=== PATIENT | female | born 1985 | race Caucasian/White ===

== ENCOUNTER 2023-09-17 09:30 | Outpatient (AMB) | payer BC, SELFPAY ==
--- NOTE | 2023-09-17 09:34 | A.OFFVIS_ITS ---
Vital Signs 09/17/23 09:36 Height 5 ft 8 in Weight 184 lb BMI 28.0 BP 108/66 Intake Visit Reasons: New patient Annual Intake Note: spotting before her period and stabbing pains pulsating Certified Welder Required: No Information Interpreted: non-clinical & clinical Forest Officer: Forest Officer Present (Aidyn) Allergies cinnamon [CINNAMON] Allergy (Intermediate, Verified 09/17/23 09:38) HIVES [place] And Derivatives [CITRUS] Allergy (Intermediate, Verified 09/17/23 09:38) HIVES pineapple [PINEAPPLE] Allergy (Unknown, Verified 09/17/23 09:38) SWELLING OxyContin Allergy (Unknown, Uncoded 09/17/23 09:38) Unknown Seasonal IC Allergy (Unknown, Uncoded 09/17/23 09:38) Itchy Eyes Is last menstrual period known: Yes Last menstrual period: 08/24/23 Post menopausal: No HPI Comments Details: She is a premenopausal woman presenting for new patient annual examination, last seen here in 2019. Doing well with no concerns: spotting a week before her cycle (6-7d of bleeding), usual cycles were 4-5d, along with a sharp, pulsating pain deep in midline of pelvis x30sec. sporadically for over a year. Also painful coitus, bloating, loose stools with cycle, She tries to eat healthy and stays active with exercise. Currently is sexually active w/. She denies vaginal itching and irritation. STI screening offered; she accepts. ParaGard IUD inserted 2019. Denies family history of breast, ovarian or colon cancer. Last pap smear 2019, negative. 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 Female Reproductive History Menstrual Age of Menarche: 10 Duration of menses: 3-5 days Date of last menstrual period: 08/24/23 control method: copper IUCD (2019) Total pregnancies: 1 Full term: 1 Number of Living Children: 1 Date of last pap smear: 06/23/18 (negative) History of abnormal pap smear: No Review of Systems Const All systems reviewed & are unremarkable except as noted in HPI and below Reports as per HPI Eyes Reports no additional complaints ENT Reports no additional complaints Card Reports no additional complaints Resp Reports no additional complaints GI Reports as per HPI and Reports no additional complaints Reports as per HPI Musc Reports no additional complaints Skin/Breast Reports as per HPI Neuro Reports no additional complaints Psych Reports no additional complaints Endo Reports no additional complaints Dung/Lymph Reports no additional complaints Aller/Immun Reports no additional complaints Physical Exam Vital Signs: Last Vital Signs BP 108/66 09/17/23 09:36 BMI result Body Mass Index 28.0 Const General: cooperative, healthy appearing, no acute distress, well developed and alert Orientation/consciousness: patient oriented x3 HEENT Head: Yes normal to inspection Eyes General: appearance normal, both eyes and all related structures Neck Neck: Yes normal visual inspection Thyroid: Thyroid normal Chest Chest palpation & inspection: normal inspection of the chest and other (no puckering, dimpling, peau de orange, retraction, discharge, masses) Breast/axilla inspection: normal inspection of the breasts Breast/axilla palpation: normal palpation of the breasts Resp Effort & Inspection: normal respiratory effort GI Inspection: Yes normal to inspection Palpation (GI): Soft to palpation Rectal Exam - Female: deferred General: Yes bladder normal to palpation External Female Exam: normal external appearance and normal appearance of the urethra Speculum Exam - Vagina: normal appearance of the vagina, normal palpation, normal vaginal discharge and vaginal bleeding Speculum Exam - Cervix: normal appearance of the cervix, normal palpation and Other cervical findings present (IUD strings present) Bimanual exam- vagina & uterus: normal bimanual exam, normal palpation, uterine size normal, bladder normal to palpation, normal palpation and non-tender Bimanual Exam- Adnexa, other: no masses OB/external & speculum: vaginal bleeding Skin General skin exam: no rashes or lesions noted Rashes: no rashes Neuro General: patient oriented x3 Cognition (Neuro): normal cognition Extrem General: Yes normal to inspection Psych Attitude: cooperative Thought process: Normal thought process present Assessment & Plan Assessment & Plan (1) Encounter for well woman exam with routine gynecological exam: Code(s): Z01.419 - Encounter for gynecological examination (general) (routine) without abnormal findings Category: Medical (2) Dyspareunia in female: Code(s): N94.10 - Unspecified dyspareunia Category: Medical (3) Pelvic pain: Code(s): R10.2 - Pelvic and perineal pain Plan Discussed: Current recommendations for pap smears per ASCCP guidelines. Breast awareness and periodic breast exams. Maintain a healthy lifestyle including a well balanced diet and routine exercise. Mammogram after 40th birthday, order placed in advance. Workup for pelvic pain: pelvic ultrasound cervical cultures, UA reflex for culture, follow up in person for test results and plan of care. ParaGard users can see an increase in the length of their periods from their normal baseline. Patient verbalizes understanding and agrees to the plan of care. She was given opportunity to ask questions and all questions were answered to the best of my ability. RTO in one year for annual psychologist experimental examination. This note is constructed using voice recognition software. While every effort has been made to ensure accuracy, eyeglass cutter errors may have been included. Orders: Orders UA CC w/rflx Micro + Cult Today N94.10 - Unspecified dyspareunia, R10.2 - Pelvic and perineal pain US pelvic and transvaginal Today N94.10 - Unspecified dyspareunia, R10.2 - Pelvic and perineal pain Bacterial Vaginosis Panel Today R10.2 - Pelvic and perineal pain CT NG by PCR Today R10.2 - Pelvic and perineal pain Pap Smear Today Z12.4 - Encounter for screening for malignant neoplasm of cervix MM tomosynthesis screening BI 02/24/24 Z12.31 - Encounter for screening mammogram for malignant neoplasm of breast Coding Level of Care Code New Pt Prev Care 18-39yr([id number] Diagnoses Encounter for well woman exam with routine gynecological exam Z01.419 Dyspareunia in female N94.10 Pelvic pain R10.2
[2023-09-17 09:36] VITALS: BP 108/66; BMI 28.0
== END 2023-09-17 10:08 | disposition home or self-care (01) ==
PROVIDERS: PCP Internal Medicine; Visit Provider Advanced Practice Midwife
DX: Z01.419 Encounter for gynecological examination (general) (routine) without abnormal findings (principal); N94.10 Unspecified dyspareunia; R10.2 Pelvic and perineal pain
CPT/HCPCS: 99385

== ENCOUNTER 2023-09-17 09:30 | Outpatient (REF) | payer BC, SELFPAY ==
[2023-09-18 05:35] LABS: CT PCR NOT DETECTED (Not Detect.); NG PCR NOT DETECTED (Not Detect.)
[2023-09-18 10:49] LABS: Bacterial Vaginosis PCR POSITIVE (Negative); Candida Group PCR NOT DETECTED (Not Detect); Candida glab krusei PCR NOT DETECTED (Not Detect); Trichomonas vaginalis PCR NOT DETECTED (Not Detect)
== END 2023-09-17 09:31 | disposition home or self-care (01) ==
LOC: HO.LNP 09:30
PROVIDERS: PCP Internal Medicine; Visit Provider Advanced Practice Midwife
DX: Z01.419 Encounter for gynecological examination (general) (routine) without abnormal findings (principal); R10.2 Pelvic and perineal pain; N94.10 Unspecified dyspareunia
CPT/HCPCS: 0352U; 0353U; 88142

== ENCOUNTER 2023-09-24 15:38 | Outpatient (REF) | payer BC, SELFPAY ==
--- NOTE | ~2023-09-24 | US_ITS ---
EXAMINATION: US PELVIS CLINICAL INFORMATION: Dyspareunia, last menstrual period 09/24/2023. COMPARISON: 10/13/2018. TECHNIQUE: Ultrasound of the pelvis is performed using both transabdominal and transvaginal transducers along with Doppler. Transvaginal imaging is performed due to inadequate visualization transabdominally. FINDINGS: The uterus is anteverted and measures 10.3 x 4.1 x 5.4 cm, volume 119.[address] within the endometrial cavity. Visualization of the endometrium is limited due to shadowing from the IUD. Uterine fibroids measure 1.4 x 1.3 x 1.3 cm, previously 1.8 x 1.7 x 1.9 cm. 0.5 x 0.3 x 0.5 cm and 0.9 x 0.7 x 0.9 cm fibroids were not previously visualized. No significant free fluid. Right ovary measures 3.6 x 2.8 x 2.5 cm, volume 13.2 mL. 2.2 x 2.0 x 2.2 cm right ovarian cyst appears simple. There is no specific indication for additional imaging at this time. Left ovary measures 3.2 x 1.3 x 1.6 cm, volume 3.5 mL. Limited visualization of the left ovary on transvaginal ultrasound images. Left ovary is grossly unremarkable on transabdominal ultrasound images. US/US pelvic and transvaginal IMPRESSION: 1. IUD in place within the endometrial cavity. 2. Fibroid uterus.
[2023-09-27 03:49] LABS: HPV mRNA E6/E7 rflx Not Detected (Not Detected)
== END 2023-09-24 15:39 | disposition home or self-care (01) ==
LOC: HO.US 15:38
PROVIDERS: PCP Internal Medicine; Visit Provider Advanced Practice Midwife
DX: N94.10 Unspecified dyspareunia (principal); R10.2 Pelvic and perineal pain; Z11.51 Encounter for screening for human papillomavirus (HPV)
CPT/HCPCS: 76830; 76856; 87624

== ENCOUNTER 2023-10-21 09:50 | Outpatient (REF) | payer BC, SELFPAY ==
[2023-10-21 10:58] LABS: Appearance Urine Clear; Color Urine Yellow; Glucose Urine UA Negative (Negative); Leukocyte Esterase Urine Negative (Negative); Nitrite Urine Negative (Negative); Specific Gravity - Urine <= 1.005 (1.005-1.025); Urine Blood Negative (Negative); Urine Ketones Negative (Negative); Urine Protein Negative (Neg-Trace)
== END 2023-10-21 09:51 | disposition home or self-care (01) ==
LOC: HO.LAB 09:50
PROVIDERS: PCP Internal Medicine; Visit Provider Advanced Practice Midwife
DX: R10.2 Pelvic and perineal pain (principal); N94.10 Unspecified dyspareunia
CPT/HCPCS: 81003

== ENCOUNTER 2023-10-31 15:17 | Outpatient (REF) | payer BC, SELFPAY ==
[2023-11-01 09:06] LABS: Bacterial Vaginosis PCR NEGATIVE (Negative); Candida Group PCR NOT DETECTED (Not Detect); Candida glab krusei PCR NOT DETECTED (Not Detect); Trichomonas vaginalis PCR NOT DETECTED (Not Detect)
== END 2023-10-31 15:18 | disposition home or self-care (01) ==
LOC: HO.LAB 15:17
PROVIDERS: PCP Internal Medicine; Visit Provider Advanced Practice Midwife
DX: R31.9 Hematuria, unspecified (principal); N89.8 Other specified noninflammatory disorders of vagina; N94.10 Unspecified dyspareunia; D21.9 Benign neoplasm of connective and other soft tissue, unspecified; R10.2 Pelvic and perineal pain; Z71.2 Person consulting for explanation of examination or test findings
CPT/HCPCS: 0352U; 81003; 87086

== ENCOUNTER 2023-10-31 15:17 | Outpatient (AMB) | payer BC, SELFPAY ==
--- OUTSIDE RECORDS SUMMARY | 2023-10-31 15:18 | XMS_ITS | Continuity of Care Document ---
Author Organization [facility] Address Unknown Care Team Providers Care Intellectual Property Lawyer Name Role Phone Jass NAVARRO, Gilberto Primary Care Physician [phone] Encounter [facility] [place] Date(s): 09/06/21 - 11/02/21 [facility] Attending Physician: Lenin Malhotra MD Admitting Physician: Lenin Malhotra MD Allergies, Adverse Reactions, Alerts No Known Allergies Medications Acetaminophen 0 Refills, Maintenance, 04/07/18 10:07:20 EST Start Date: 04/07/18 Status: Ordered busPIRone 5 mg oral tablet 5 mg, 1, tablet, By Mouth, 3 times a day, # 90 tablet, Refills 0, Maintenance, 04/19/21 12:57:00 EST, Partial fill upon patient request if the prescription is for a schedule II opioid drug. Start Date: 04/19/21 Status: Ordered Compression Stockings See Instructions, # 2 pair, Refills 2, Tot. Refills 2, Maintenance, surgical, calf length 20-30 mm Hg. Dx POTS, 01/29/17 10:39:50, Compound Start Date: 01/29/17 Status: Ordered Compression- Lower Extremity (Knee High) See Instructions, # 2 pair, Refills 2, Tot. Refills 2, Maintenance, 20-30 mm Hg, 06/08/15 8:38:44, Compound Start Date: 06/08/15 Status: Ordered Dupixent Pre-filled Pen 300 mg/2 mL subcutaneous solution 0 Refills, Maintenance, 04/19/21 12:58:00 EST, Partial fill upon patient request if the prescription is for a schedule II opioid drug. Start Date: 04/19/21 Status: Ordered Pepcid Complete 1 tablet, By Mouth, Every 12 hours, 0 Refills, Maintenance, 04/07/18 10:06:58 EST Start Date: 04/07/18 Status: Ordered Multivitamins By Mouth, Daily, 0 Refills, Maintenance, 04/07/18 10:07:09 EST Start Date: 04/07/18 Status: Ordered sertraline 25 mg oral tablet 1 tablet = 25 mg, By Mouth, Daily, # 30 tablet, 0 Refills, Maintenance, 04/19/21 12:56:00 EST, Tablet, Partial fill upon patient request if the prescription is for a schedule II opioid drug. Start Date: 04/19/21 Status: Ordered Problem List Condition Effective Dates Status Health Status Inform ant CKD (chronic kidney disease)(Confirmed) Active Social History Social History Type Response Smoking Status Former smoker; Tobac co user in household: No; Other: pt states she quit smoking 2 years ago; entered on: 01/29/17 Sex
--- OUTSIDE RECORDS SUMMARY | 2023-10-31 15:18 | XMS_ITS | Continuity of Care Document ---
Author Organization [facility] Address [address] [place] [address]- Care Team Providers Care Net Software Engineer Name Role Phone Esau Lilly MD Primary Care Physician [place] [facility] [place] - 05/26/22 [facility] [address] [place] [address]- [place] Allergies, Adverse Reactions, Alerts No Known Allergies Medications Compression Stockings See Instructions, # 2 pair, [...] opioid drug. Start Date: 04/19/21 Status: Ordered midodrine 5 mg oral tablet 7.5 mg, 1.5, tablet, By Mouth, 3 times a day, Take 1.5 tablet in AM upon waking and then repeat every 4hr for 2 additional doses. Last dose no later than 6PM, # 135 tablet, Refills 5, Tot. Refills 5,Maintenance, 05/02/22 14:17:00 EST, Route to Pharm... Start Date: 05/02/22 Stop Date: 10/29/22 Status: Ordered sodium chloride 1 gm oral tablet See Instructions, Take one tablet upon waking and repeat after 4 hours x1 dose, # 60 tablet, 5 Refills, Maintenance, [facility] upon patient request ifthe prescription is for a schedule II opioid drug.,... Start Date: 03/05/22 Status: Ordered traMADol 50 mg oral tablet 1 tablet = 50 mg, By Mouth, Daily, PRN for pain, # 60 tablet, 0 Refills, Maintenance, 12/07/21 16:20:00 EDT, Tablet, Partial fill upon patient request if the prescription is for a schedule II opioid drug. Start Date: 12/07/21 Status: Ordered Problem List Condition Confirmation Course Effective Dates Status Health St atus Informant CKD (chronic kidney disease) Confirmed Active Social History Social History Type Response Smoking Status Former smoker; Tobac co user in household: No; Other: pt states she quit smoking 2 years ago; entered on: 01/29/17 Sex Patient Care team information Care Team Personnel Name: Esau Lilly MD Position: S Physician (General Medicine) Member Role: PCP Address: Address: [address] [place] [address], [address] [facility] [address] Care Team Related Persons Name: ASHLEIGH FIELDS Address: [address] [place] [address] Name: ERICKA OROZCO Address: [address] [place] [address]
--- OUTSIDE RECORDS SUMMARY | 2023-10-31 15:18 | XMS_ITS | Continuity of Care Document ---
Author Organization [facility] ter Address [address] [place] [address]- Care Team Providers Care Security Messenger Name Role Phone Maxx NAVARRO, Esau Kirkpatrick Primary Care Physician [place] [facility] [place] - 03/23/[address] [address]- Attending Physician: Juan F Shafer MD Admitting Physician: Juan F Shafer MD Referring Physician: Thomas Davalos Allergies, Adverse Reactions, Alerts No Known Allergies [...] Status: Ordered midodrine 5 mg oral tablet 5 mg, 1, tablet, By Mouth, 3 times a day, Take one tablet in AM upon waking and then repeat every 4hr for 2 additional doses. Last dose no later than 6PM, # 90 tablet, Refills 5, Tot. Refills 5, Maintenance, 12/07/21 18:30:00 EDT, Route to Pharmacy E... Start Date: 12/07/21 Stop Date: 06/05/22 Status: Ordered sodium chloride 1 gm oral tablet See Instructions, Take one tablet upon waking and repeat after 4 hours x1 dose, # 60 tablet, 5 Refills, Maintenance, 03/05/22 13:02:00 EST, [facility], Partial fill upon patient request [...] Team Personnel Name: Esau Lilly MD Position: [facility] Physician (General Medicine) Member Role: PCP Address: Address: [address] [facility], [address] [facility] [place] [address]- Care Team Related Persons Name: ASHLEIGH FIELDS Address: [address] [address] Name: ERICKA OROZCO Address: home [address] [place] [address]
--- OUTSIDE RECORDS SUMMARY | 2023-10-31 15:18 | XMS_ITS | Continuity of Care Document ---
Author Organization [facility] Address [address] [place] [address], [address] Floor, [address] [place] [address]- Care Team Providers Care Narrow Fabrics Weaver Name Role Phone Esau Lilly MD Primary Care Physician [place] [facility] [place]22 [facility] [address] [facility], 3rd Floor, [address] [place] [address]- Attending Physician: AdmChelsea sibley Admitting Physician: Admtr, Ar8 Referring Physician: Admtr, Ar8 Allergies, Adverse Reactions, Alerts No Known Allergies [...] dose, # 60 tablet, 5 Refills, Maintenance, 12/07/21 18:29:00 EDT, [facility], Partial fill upon patient request ifthe prescription is for a schedule II opioid drug.,... Start Date: 12/07/21 Status: Ordered traMADol 50 mg oral tablet 1 tablet = 50 mg, By Mouth, Daily, PRN for pain, # 60 tablet, 0 Refills, Maintenance, 12/07/21 16:20:00 EDT, Tablet, Partial fill upon patient request if the prescription is for a schedule II opioid drug. Start Date: 12/07/21 Status: Ordered Problem List Condition Effective Dates Status Health Status Inform ant CKD (chronic kidney disease)(Confirmed) Active Social History Social History Type Response Smoking Status Former smoker; Tobac co user in household: No; Other: pt states she quit smoking 2 years ago; entered on: 01/29/17 Sex Care Team Personnel Name: Esau Lilly MD Address: [address] [place] [address], [address] [facility] [place], [place] [address]
--- OUTSIDE RECORDS SUMMARY | 2023-10-31 15:18 | XMS_ITS | Continuity of Care Document ---
Author Organization [facility] Address [address] [place] [address], [address] Floor, [address] [place] [address]- Care Team Providers Care Manager Rn Case Name Role Phone Esau Lilly MD Primary Care Physician [phone] Encounter [facility] [place] Date(s): 11/24/21 - 12/24/21 [facility] [address] [facility], 3rd Floor, [address] [place] [address]- [place] Allergies, Adverse Reactions, Alerts No Known [...] tablet, 5 Refills, Maintenance, 12/07/21 18:29:00 EDT, [facility], Partial fill upon patient request [...] Team Personnel Name: Esau Lilly MD Address: [address] [place] [address], [address] [facility] [place], [place] [address]
--- OUTSIDE RECORDS SUMMARY | 2023-10-31 15:18 | XMS_ITS | Continuity of Care Document ---
Author Organization [facility] Address [address] [place] [address]- Care Team Providers Care Contract Sheltered Workshop Supervisor Name Role Phone Deana Branch Primary Care Physician [phone] Encounter [facility] [place] Date(s): 10/19/21 - 11/18/21 [facility] [address] [place] [address]-
--- OUTSIDE RECORDS SUMMARY | 2023-10-31 15:18 | XMS_ITS | Continuity of Care Document ---
Author Organization [facility] Address Unknown Care Team Providers Care Assessment Technician Name Role Phone Jass NAVARRO, Gilberto Primary Care Physician En[place] [facility] [place](s): 06/26/21 - 07/26/21 [facility] Attending Physician: Chelsea Spring Admitting Physician: Chelsea Spring Referring Physician: Chelsea Spring Allergies, Adverse Reactions, Alerts No Known Allergies [...]
--- OUTSIDE RECORDS SUMMARY | 2023-10-31 15:18 | XMS_ITS | Continuity of Care Document ---
Author Organization [facility] Address [address] [facility], 3r d Floor, [address] [place] [address]- Care Team Providers Care Jewel Gauger Name Role Phone Maxx NAVARRO, Esau Kirkpatrick Primary Care Physician [phone] [id number] 04/30/22 - 06/14/22 [facility] [address] [facility], [address] Floor, [address] [place] [address]- Attending Physician: Lenin Malhotra MD Admitting Physician: [...] tablet, 5 Refills, Maintenance, 03/05/22 13:02:00 EST, [facility], Partial fill upon patient [...] Team Personnel Name: Esau Lilly MD Position: [facility] Physician (General Medicine) Member Role: PCP Address: Address: [address] [place] [address], [address] [facility] [place] [address]- Care Team Related Persons Name: ASHLEIGH FIELDS Address: home [address] [place] [id number] Name: ERICKA OROZCO Address: home [address] [place] [address]
--- OUTSIDE RECORDS SUMMARY | 2023-10-31 15:18 | XMS_ITS | Continuity of Care Document ---
Author Organization [facility] Address [address] [place] [address]- Care Team Providers Care Clinical Documentation Improvement Specialist Name Role Phone Esau Lilly MD Primary Care Physician [phone] [place] [facility] [place] [id number] Date(s): 07/27/22 - 08/26/22 [facility] [address] [place] [address]- Attending Physician: Chelsea Spring Admitting Physician: [id number] Referring Physician: Admtr, Ar8 Allergies, Adverse Reactions, [...] Pre-filled Pen 300 mg/2 mL subcutaneous solution = 300 mg, Every 2 weeks, 0 Refills, Maintenance, 04/19/21 12:58:00 EST, Partial fill upon patient request if the prescription is for a schedule II opioid drug. Start Date: 04/19/21 Status: Ordered Fexofenadine = 180 mg, By Mouth, Daily, 0 Refills, Maintenance, 07/27/22 14:11:00 EDT, Partial fill upon patientrequest if the prescription is for a schedule II opioid drug. Start Date: 07/27/22 Status: Ordered midodrine 5 mg oral tablet 7.5 mg, 1.5, tablet, By Mouth, 3 times a day, Take 1.5 tablet in AM upon waking and then repeat every 4hr for 2 additional doses. Last dose no later than 6PM, # 135 tablet, Refills 5, Tot. Refills 5,Maintenance, 05/02/22 14:17:00 EST, Route to Pharm... Start Date: 05/02/22 Stop Date: 10/29/22 Status: Ordered propranolol 10 mg oral tablet See Instructions, 0.5 tablet By Mouth 2 times a day, # 15 tablet, Refills 1, Tot. Refills 1, Maintenance, 07/27/22 15:52:00 EDT, Instructions Replace Required Details, Route to Pharmacy Electronically, [facility], Partial fill upon patient... Start Date: 07/27/22 Status: Ordered sodium chloride 1 gm oral tablet See Instructions, Take one tablet upon waking and repeat after 4 hours x1 dose, # 60 tablet, 5 Refills, Maintenance, 03/05/22 13:02:00 EST, [facility], Partial fill upon patient [...] Informant CKD (chronic kidney disease) Confirmed Active POTS (postural orthostatic tachycardia syndrome) Confirmed Active Social History Social History Type Response Smoking Status Former smoker; Tobac co user in household: No; Other: pt states she quit smoking 2 years ago; entered on: 01/29/17 Sex Cardiology * Event Display: Non BH Cardiovascular Results Authored Date: * Event Display: Holter Report Authored Date: * Event Display: Non Cardiovascular Results Authored Date: Patient Care team information Care Team Personnel Name: Esau Lilly MD Position: [facility] Physician (General Medicine) Member Role: PCP Address: Address: [address] [place] [address], [address] Care Team Related Persons Name: ASHELIGH FIELDS Address: [address] [address] Name: ERICKA OROZCO Address: [address] [address]
--- OUTSIDE RECORDS SUMMARY | 2023-10-31 15:18 | XMS_ITS | Continuity of Care Document ---
Author Organization [facility] Address [address] [place] [address]- Care Team Providers Care Relationship Consultant Name Role Phone Esau Lilly MD Primary Care Physician [phone] [place] [facility] [place] [id number] Date(s): 12/07/21 - 01/06/22 [facility] [address] [place] [address]- Attending Physician: Chelsea Spring Admitting Physician: AdmtrChelsea Referring Physician: Admtr, Ar8 Allergies, Adverse Reactions, [...] tablet, 5 Refills, Maintenance, 12/07/21 18:29:00 EDT, [facility], Partial fill upon patient [...] on: 01/29/17 Sex Care Team Personnel Name: Maxx NAVARRO, Esau Kirkpatrick Address: [address] [place] [address], [address] [facility] [place], [place] [address]
--- OUTSIDE RECORDS SUMMARY | 2023-10-31 15:18 | XMS_ITS | Continuity of Care Document ---
Author Organization [facility] Address [address] [place] [address]- Care Team Providers Care Print Inspector Name Role Phone Esau Lilly MD Primary Care Physician Encounter [facility] [place](s): 08/01/22 - 08/31/22 [facility] [address] [place] [address]- [place] Allergies, Adverse Reactions, Alerts No Known [...] Replace Required Details, Route to Pharmacy Electronically, [facility], Partial fill upon patient... Start Date: 07/27/22 Status: Ordered sodium chloride 1 gm oral tablet See Instructions, Take one tablet upon waking and repeat after 4 hours x1 dose, # 60 tablet, 5 Refills, Maintenance, 03/05/22 13:02:00 EST, [facility], Partial fill upon patient request [...] Team Personnel Name: Esau Lilly MD Position: [facility] Physician (General Medicine) Member Role: PCP Address: Address: [address] [place] [address], [address] [facility] [place] [address]- Care Team Related Persons Name: ASHLEIGH FIELDS Address: [address] [address] Name: ERICKA OROZCO Address: [address] [address]
--- OUTSIDE RECORDS SUMMARY | 2023-10-31 15:18 | XMS_ITS | Continuity of Care Document ---
Author Organization [facility] Address [address] [place] [address]- Care Team Providers Care Floor Covering Contractor Name Role Phone Deana Branch Primary Care Physician [phone] [place] [facility] [place]): 10/18/21 - 11/17/21 [facility] [address] [place] [address]-
--- OUTSIDE RECORDS SUMMARY | 2023-10-31 15:18 | XMS_ITS | Continuity of Care Document ---
Author Organization [facility] Address [address] [place] [address]- Care Team Providers Care Area Cleaner Name Role Phone Esau Lilly MD Primary Care Physician [phone] En[place] [facility] [place] [facility] [id number] Date(s): 12/07/21 - 01/06/22 [facility] [address] [place] [address]- Attending Physician: Chelsea Spring Admitting Physician: AdmtrChelsea [...] tablet, 5 Refills, Maintenance, 12/07/21 18:29:00 EDT, [facility], Partial fill upon [...] Personnel Name: Maxx NAVARRO, Esau Kirkpatrick Address: [address] [place] [address], [address] [facility] [place], [place] [address]
--- OUTSIDE RECORDS SUMMARY | 2023-10-31 15:18 | XMS_ITS | Continuity of Care Document ---
Author Organization [facility] Address Unknown Care Team Providers Care Consumer Insight Manager Name Role Phone Jass NAVARRO, Gilberto Primary Care Physician [phone] Encounter [facility] [place] Date(s): 10/03/21 - 11/02/21 [facility] Attending Physician: Chelsea Spring Admitting Physician: [...]
--- OUTSIDE RECORDS SUMMARY | 2023-10-31 15:18 | XMS_ITS | Continuity of Care Document ---
Author Organization [facility] Address [address] [facility], 3r d Floor, [address] [place] [address]- Care Team Providers Care Management Engineer Name Role Phone Esau Lilly MD Primary Care Physician [phone] [id number] Date(s): 04/18/22 - 06/07/22 [facility] [address] [facility], 3rd Floor, [address] [place] [address]- Attending Physician: Lenin Malhotra MD Admitting Physician: [...] tablet, 5 Refills, Maintenance, 03/05/22 13:02:00 EST, [facility], Partial fill upon [...] Team Personnel Name: Esau Lilly MD Position: [facility] Physician (General Medicine) Member Role: PCP Address: Address: [address] [place] [address], [address] [facility] [place] [address]- Care Team Related Persons Name: ASHLEIGH FIELDS Address: home [address] [place] [id number] Name: ERICKA OROZCO Address: home [address] [place] [address]
--- OUTSIDE RECORDS SUMMARY | 2023-10-31 15:18 | XMS_ITS | Continuity of Care Document ---
Author Organization [facility] Address [address] [place] [address]- Care Team Providers Care Supervisor Network Control Operators Name Role Phone Esau Lilly MD Primary Care Physician [place] [facility] [place] 03/05/22 - 04/04/22 [facility] [address] [place] [address]- [place] Allergies, Adverse Reactions, Alerts No Known [...] dose, # 60 tablet, 5 Refills, Maintenance, [facility]22 [facility] fill upon patient request [...] Team Personnel Name: Esau Lilly MD Position: [facility] Physician (General Medicine) Member Role: PCP Address: Address: [address] [place] [address], [address] [facility] [place] [address]- Care Team Related Persons Name: ASHLEIGH FIELDS Address: home [address] [address] Name: ERICKA OROZCO Address: home [address] [place] [address]
--- OUTSIDE RECORDS SUMMARY | 2023-10-31 15:18 | XMS_ITS | Continuity of Care Document ---
Author Organization [facility] Address [address] [place] [address]- Care Team Providers Care Seo Executive Name Role Phone Esau Lilly MD Primary Care Physician [phone] Encounter [facility] [place] Date(s): 01/24/22 - 02/23/22 [facility] [address] [place] [address]- [place] Allergies, Adverse Reactions, Alerts No Known [...] tablet, 5 Refills, Maintenance, 12/07/21 18:29:00 EDT, [facility], Partial fill upon patient [...] Team Personnel Name: Esau Lilly MD Position: [facility] Physician (General Medicine) Member Role: PCP Address: Address: [address] [place] [address], [address] [facility] [place] [address]- Care Team Related Persons Name: ASHLEIGH FIELDS Address: home [address] [address] Name: ERICKA OROZCO Address: home [address] [place] [address]
--- OUTSIDE RECORDS SUMMARY | 2023-10-31 15:18 | XMS_ITS | Continuity of Care Document ---
Author Organization [facility] Address Unknown Care Team Providers Care Registered Nurse First Assistant Name Role Phone Deana Branch Primary Care Physician [phone] Encounter [facility] Date(s): 03/16/21 - 04/15/21 [facility]
--- OUTSIDE RECORDS SUMMARY | 2023-10-31 15:19 | XMS_ITS | Continuity of Care Document ---
Author Organization [facility] Address [address] [facility], 3r d Floor, [address] [place] [address]- Care Team Providers Care Sped Teacher Name Role Phone Esau Lilly MD Primary Care Physician Encounter [facility] [place] Date(s): 05/15/22 - 06/14/22 [facility] [address] [facility], 3rd Floor, [address] [place] [address]- Attending Physician: Chelsea Spring Admitting Physician: Chelsea Spring Referring Physician: AdmtrChelsea Allergies, Adverse Reactions, Alerts No Known Allergies [...] tablet, 5 Refills, Maintenance, 03/05/22 13:02:00 EST, [facility], Partial fill upon patient [...] Care team information Care Team Personnel Name: Maxx NAVARRO, Esau Kirkpatrick Position: [facility] Physician (General Medicine) Member Role: PCP Address: Address: [address] [place] [address], [address] [facility] [place] [address]- Care Team Related Persons Name: ASHLEGIH FIELDS Address: home [address] [address] Name: ERICKA OROZCO Address: [address] [address]
--- OUTSIDE RECORDS SUMMARY | 2023-10-31 15:19 | XMS_ITS | Continuity of Care Document ---
Author Organization [facility] Address [address] [place] [address]- Care Team Providers Care Public Affairs Officer Name Role Phone Esau Lilly MD Primary Care Physician Encounter [facility] [place] Date(s): 01/24/22 - 02/23/22 [facility] [address] [place] [address]- [place] Allergies, Adverse Reactions, Alerts No Known [...] tablet, 5 Refills, Maintenance, 12/07/21 18:29:00 EDT, [facility], Partial fill upon patient request [...] Team Personnel Name: Esau Lilly MD Position: [facility] Physician (General Medicine) Member Role: PCP Address: Address: [address] [place] [address], [address] [facility] [place] [address]- Care Team Related Persons Name: ASHLEIGH FIELDS Address: home [address] [address] Name: ERICKA OROZCO Address: home [address] [place] [address]
--- OUTSIDE RECORDS SUMMARY | 2023-10-31 15:19 | XMS_ITS | Continuity of Care Document ---
Author Organization [facility] Address [address] [place] [address]- Care Team Providers Care Mental Measurements Teacher Name Role Phone Maxx NAVARRO, Esau Kirkpatrick Primary Care Physician Encounter [facility] [place] Date(s): 04/04/23 - 05/04/23 [facility] [address] [place] [address]- Referring Physician: Deana Branch Allergies, Adverse Reactions, Alerts No Known Allergies [...] Date: 05/02/22 Stop Date: 10/29/22 Status: Ordered omeprazole 40 mg oral enteric coated capsule 1 capsule = 40 mg, By Mouth, 2 times a day, # 60 capsule, 3 Refills, Maintenance, 01/01/23 9:29:00 EDT, EC Capsule, [facility], Partial fill upon patient request if the prescription is fora schedule II opioid drug., 175, cm, 01/01/23 8:53:... Start Date: 01/01/23 Stop Date: 05/01/23 Status: Ordered propranolol 10 mg oral tablet See Instructions, 0.5 tablet By Mouth 2 times a day, # 15 tablet, Refills 1, Tot. Refills 1, Maintenance, 07/27/22 15:52:00 EDT, Instructions Replace Required Details, Route to Pharmacy Electronically, [facility], Partial fill upon patient... Start Date: 07/27/22 Status: Ordered sodium chloride 1 gm oral tablet See Instructions, Take one tablet upon waking and repeat after 4 hours x1 dose, # 60 tablet, 5 Refills, Maintenance, 03/05/22 13:02:00 EST, [facility], Partial fill upon patient request ifthe prescription is for a schedule II opioid drug.,... Start Date: 03/05/22 Status: Ordered Sodium Chloride 1000 mg oral tablet See Instructions, TAKE ONE TABLET BY MOUTH UPON WAKING AND REPEAT AFTER 4 HOURS, # 60 tablet, 5 Refills, Maintenance, 03/18/23 8:09:00 EST, [facility], 175, cm, 01/01/23 8:53:00 EDT, Height, 78.7, kg, 04/10/22 20:03:00 EST, Dry Weight Start Date: 03/18/23 Status: Ordered traMADol 50 mg oral tablet [...] Personnel Name: Maxx NAVARRO, Esau Kirkpatrick Position: S Physician - Primary Care Member Role: PCP Address: Address: [address] [place] [address], [address] [place] [address]- Care Team Related Persons Name: ASHLEIGH FIELDS Address: home [address] [place] [address] Name: ERICKA OROZCO Address: home [address] [place] [address]
--- NOTE | 2023-10-31 15:20 | MHC.OFFVIS ---
Intake Visit Reasons: US follow up Allergies cinnamon [CINNAMON] Allergy (Intermediate, Verified 10/31/23 15:20) HIVES [place] And Derivatives [CITRUS] Allergy (Intermediate, Verified 10/31/23 15:20) HIVES pineapple [PINEAPPLE] Allergy (Unknown, Verified 10/31/23 15:20) SWELLING OxyContin Allergy (Unknown, Uncoded 09/17/23 09:38) Unknown Seasonal IC Allergy (Unknown, Uncoded 09/17/23 09:38) Itchy Eyes Is last menstrual period known: Yes Last menstrual period: 10/10/23 HPI Comments Details: Patient is here today for follow up ultrasound results, history of dyspareunia, irregular bleeding, and pelvic pain. Current ParaGard user. She reports frequency of urination with no bladder discomfort. Admits to hydrating well. Recent exam had positive results for bacterial vaginosis she did take treatment does not feel much better she reports daily cramping. Since treatment she reports that her vaginal area feels swollen, and slightly uncomfortable. She is considering removing her IUD. She reports a recent episode of pelvic pain that was very intense and doubled her up. No precipitating factors. 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 Has a follow up with her PCP next month. 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 Female Reproductive History Menstrual Age of Menarche: 10 Date of last menstrual period: 10/10/23 control method: copper IUCD Review of Systems Const All systems reviewed & are unremarkable except as noted in HPI and below Physical Exam Const General: cooperative, healthy appearing and no acute distress Orientation/consciousness: patient oriented x3 GI Inspection: Yes normal to inspection Palpation (GI): Soft to palpation and Other GI palpation findings present (Nontender) Rectal Exam - Female: visual inspection normal General: Yes bladder normal to palpation External Female Exam: normal appearance of the urethra Speculum Exam - Vagina: normal appearance of the vagina, normal palpation and normal vaginal discharge Speculum Exam - Cervix: normal appearance of the cervix, normal palpation and Other cervical findings present (IUD strings normal length) Bimanual exam- vagina & uterus: normal bimanual exam, normal palpation, uterine size normal, bladder normal to palpation, normal palpation, uterine shape normal and non-tender Bimanual Exam- Adnexa, other: normal adnexae Neuro General: patient oriented x3 Results AMB Urinalysis, Automated UA Leukoctes 0 Sapna/uL Last Edit by IRIS Davidson on 10/31/23 15:47 UA Nitrite Negative Last Edit by IRIS Davidson on 10/31/23 15:47 UA Urobilinogen 0 mg/dL Last Edit by IRIS Davidson on 10/31/23 15:47 UA Protein 0.5 mg/dL Last Edit by Erin Serna Denys on 10/31/23 15:47 UA pH 6.0 Last Edit by IRIS Davidson on 10/31/23 15:47 UA Blood 1 Chance/uL Last Edit by IRIS Davidson on 10/31/23 15:47 UA Specific [place] 1.010 Last Edit by IRIS Davidson on 10/31/23 15:47 UA Ketone Negative Last Edit by Erin Serna Denys on 10/31/23 15:47 UA Bilirubin 0 mg/dL Last Edit by IRIS Davidson on 10/31/23 15:47 UA Glucose 0 mg/dL Last Edit by IRIS Davidson on 10/31/23 15:47 Results Reviewed Results Reviewed: [address] [address] Ultrasound Report Signed Patient: Antoinette Chavarria MR#: [id number] : 1985 Acct:[id number] Age/Sex: 38 / F ADM Date: 09/24/23 Loc: HO.US Attending Dr: Marisa Finney CNM Ordering Physician: Marisa Finney CNM Date of Service: 09/24/23 Procedure(s): US pelvic and transvaginal Accession Number(s): [id number] cc: MIKEY CLEMENTS MD; Marisa Finney CNM~ EXAMINATION: US PELVIS CLINICAL INFORMATION: Dyspareunia, last menstrual period 09/24/2023. COMPARISON: 10/13/2018. TECHNIQUE: Ultrasound of the pelvis is performed using both transabdominal and transvaginal transducers along with Doppler. Transvaginal imaging is performed due to inadequate visualization transabdominally. FINDINGS: The uterus is anteverted and measures 10.3 x 4.1 x 5.4 cm, volume 119.[address] within the endometrial cavity. Visualization of the endometrium is limited due to shadowing from the IUD. Uterine fibroids measure 1.4 x 1.3 x 1.3 cm, previously 1.8 x 1.7 x 1.9 cm. 0.5 x 0.3 x 0.5 cm and 0.9 x 0.7 x 0.9 cm fibroids were not previously visualized. No significant free fluid. Right ovary measures 3.6 x 2.8 x 2.5 cm, volume 13.2 mL. 2.2 x 2.0 x 2.2 cm right ovarian cyst appears simple. There is no specific indication for additional imaging at this time. Left ovary measures 3.2 x 1.3 x 1.6 cm, volume 3.5 mL. Limited visualization of the left ovary on transvaginal ultrasound images. Left ovary is grossly unremarkable on transabdominal ultrasound images. US/US pelvic and transvaginal IMPRESSION: 1. IUD in place within the endometrial cavity. 2. Fibroid uterus. Dictated By: Erika Stewart MD Signed By: <Electronically signed by Erika Stewart MD in OV> 10/07/23 1211 DD/ 1626 TD/TT: Account Service Representative: Assessment & Plan Assessment & Plan (1) Dyspareunia in female: Code(s): N94.10 - Unspecified dyspareunia Category: Medical (2) Fibroid: Code(s): D21.9 - Benign neoplasm of connective and other soft tissue, unspecified Category: Medical (3) Pelvic pain: Code(s): R10.2 - Pelvic and perineal pain (4) Encounter to discuss test results: Code(s): Z71.2 - Person consulting for explanation of examination or test findings Plan Discussed: Ultrasound findings including multiple fibroids, simple cyst, IUD positioned properly. Counseled re: Leiomyoma: common pelvic neoplasm. Differential diagnosis-may include leiomyosarcoma which is a rare uterine sarcoma 3-7/100,000, difficult to distinguish from fibroids on ultrasound from uterine sarcoma's. Unlikely any single test will have a highly positive predictive value. Hysterectomy is not recommended for sole purpose of excluding malignant neoplasm. Report any AUB. Pelvic pressure, bloating, or pain. Expectant management follow up in 6 months, then yearly for stability. Referral to MD if indicated for level of care. Urinalysis-trace protein 1+ blood. Follow up with PCP regarding her concerns for renal referral. Return to the office in 1 week to consider IUD removal and a follow up plan of care, consider EMB and ECC at follow up, consider options for control if decides to remove the IUD. If any increased pain or concerns to call the office sooner. All of her questions and concerns were addressed to the best of my ability and shared decision making. She is agreeable to the plan of care. This note is constructed using voice recognition software. While every effort has been made to ensure accuracy, staff combat information center officer errors may have been included. Orders: Orders Bacterial Vaginosis Panel Today D21.9 - Benign neoplasm of connective and other soft tissue, unspecified, N89.8 - Other specified noninflammatory disorders of vagina, N94.10 - Unspecified dyspareunia Urine Culture Today R31.9 - Hematuria, unspecified AMB Urinalysis Automated Today N94.10 - Unspecified dyspareunia US pelvic and transvaginal 5 Months D21.9 - Benign neoplasm of connective and other soft tissue, unspecified Coding Level of Care Code Est Pt Level 3 (99073) Diagnoses Dyspareunia in female N94.10 Fibroid D21.9 Pelvic pain R10.2 Encounter to discuss test results Z71.2
== END 2023-10-31 16:03 | disposition home or self-care (01) ==
LOC: HO.HWS 15:17
PROVIDERS: PCP Internal Medicine; Visit Provider Advanced Practice Midwife
DX: N94.10 Unspecified dyspareunia (principal); D21.9 Benign neoplasm of connective and other soft tissue, unspecified; R10.2 Pelvic and perineal pain; Z71.2 Person consulting for explanation of examination or test findings
CPT/HCPCS: 99213

== ENCOUNTER 2023-11-13 15:40 | Outpatient (AMB) | payer BC, SELFPAY ==
--- NOTE | 2023-11-13 16:02 | A.OFFVIS_ITS ---
Intake Visit Reasons: 1 week follow up/?IUD rem/EMB/ECC Food Service Assistant: Food Service Assistant Present Allergies cinnamon [CINNAMON] Allergy (Intermediate, Verified 10/31/23 15:20) HIVES [place] And Derivatives [CITRUS] Allergy (Intermediate, Verified 10/31/23 15:20) HIVES pineapple [PINEAPPLE] Allergy (Unknown, Verified 10/31/23 15:20) SWELLING OxyContin Allergy (Unknown, Uncoded 09/17/23 09:38) Unknown Seasonal IC Allergy (Unknown, Uncoded 09/17/23 09:38) Itchy Eyes Is last menstrual period known: Yes HPI Comments Details: Patient is here for a follow up, history of AUB, pelvic pain since ParaGard IUD inserted 2019, history of uterine fibroids. planning a vasectomy, considering removal of the IUD and other options. 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 Female Reproductive History Menstrual Age of Menarche: 10 Review of Systems Const All systems reviewed & are unremarkable except as noted in HPI and below Endo Reports no additional complaints Physical Exam Const General: cooperative, healthy appearing and no acute distress Psych Appearance: well kempt Attitude: cooperative Thought process: Normal thought process present Results Reviewed Results Reviewed: [address] [address] Ultrasound Report Signed Patient: Antoinette Chavarria MR#: [id number] : 1985 Acct:[id number] Age/Sex: 38 / F ADM Date: 09/24/23 Loc: HO.US Attending Dr: Marisa Finney CNM Ordering Physician: Marisa Finney CNM Date of Service: 09/24/23 Procedure(s): US pelvic and transvaginal Accession Number(s): [id number] cc: MIKEY CLEMENTS MD; Marisa Finney CNM~ EXAMINATION: US PELVIS CLINICAL INFORMATION: Dyspareunia, last menstrual period 09/24/2023. COMPARISON: 10/13/2018. TECHNIQUE: Ultrasound of the pelvis is performed using both transabdominal and transvaginal transducers along with Doppler. Transvaginal imaging is performed due to inadequate visualization transabdominally. FINDINGS: The uterus is anteverted and measures 10.3 x 4.1 x 5.4 cm, volume 119.[address] within the endometrial cavity. Visualization of the endometrium is limited due to shadowing from the IUD. Uterine fibroids measure 1.4 x 1.3 x 1.3 cm, previously 1.8 x 1.7 x 1.9 cm. 0.5 x 0.3 x 0.5 cm and 0.9 x 0.7 x 0.9 cm fibroids were not previously visualized. No significant free fluid. Right ovary measures 3.6 x 2.8 x 2.5 cm, volume 13.2 mL. 2.2 x 2.0 x 2.2 cm right ovarian cyst appears simple. There is no specific indication for additional imaging at this time. Left ovary measures 3.2 x 1.3 x 1.6 cm, volume 3.5 mL. Limited visualization of the left ovary on transvaginal ultrasound images. Left ovary is grossly unremarkable on transabdominal ultrasound images. US/US pelvic and transvaginal IMPRESSION: 1. IUD in place within the endometrial cavity. 2. Fibroid uterus. Dictated By: Erika Stewart MD Signed By: <Electronically signed by Erika Stewart MD in OV> 10/07/23 1215 DD/ 1626 TD/TT: Pipe Stem Sawyer: Assessment & Plan Assessment & Plan (1) Dyspareunia in female: Code(s): N94.10 - Unspecified dyspareunia Category: Medical (2) Fibroid: Code(s): D21.9 - Benign neoplasm of connective and other soft tissue, unspecified Category: Medical (3) Abnormal uterine bleeding (AUB): Code(s): N93.9 - Abnormal uterine and vaginal bleeding, unspecified (4) General counseling and advice for contraceptive management: Code(s): Z30.09 - Encounter for other general counseling and advice on contraception Plan Patient will reschedule her EMB/IUD removal. Counseled regarding pre procedure planning to have something to eat and drink and take 3 Advil 1 hour before the procedure with food. Reviewed options for control including nonhormonal methods today. All of her questions and concerns were addressed to the best of my ability and shared decision making. She is agreeable to the plan of care. This note is constructed using voice recognition software. While every effort has been made to ensure accuracy, addiction specialist errors may have been included. Coding Level of Care Code Est Pt Level 3 (16389) Diagnoses Dyspareunia in female N94.10 Fibroid D21.9 Abnormal uterine bleeding (AUB) N93.9 General counseling and advice for contraceptive management Z30.09
== END 2023-11-13 18:20 | disposition home or self-care (01) ==
LOC: HO.HWS 15:40
PROVIDERS: PCP Internal Medicine; Visit Provider Advanced Practice Midwife
DX: N94.10 Unspecified dyspareunia (principal); D21.9 Benign neoplasm of connective and other soft tissue, unspecified; N93.9 Abnormal uterine and vaginal bleeding, unspecified; Z30.09 Encounter for other general counseling and advice on contraception
CPT/HCPCS: 99213

== ENCOUNTER → 2023-11-13 15:40 | Outpatient (BNVA) | payer BC, SELFPAY | PROVIDERS: PCP Internal Medicine; Visit Provider Advanced Practice Midwife ==

== ENCOUNTER 2023-11-27 15:20 | Outpatient (AMB) | payer BC, SELFPAY ==
--- NOTE | 2023-11-27 15:39 | A.OFFVIS_ITS ---
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 She has a ParaGard in place and reports 1 cycle had a week of spotting with her normal bleed following she denies any other episodes of abnormal bleeding. IUD is going to be removed due to her pelvic discomfort during intimacy, partner is planning a vasectomy. She will be using condoms in the meantime until his procedure in clearance is complete. She has no other concerns today. 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 Female Reproductive History Menstrual Age of Menarche: 10 Date of last menstrual period: 10/28/23 Review of Systems Const All systems reviewed & are unremarkable except as noted in HPI and below Physical Exam Vital Signs: Last Vital Signs BP 110/68 11/27/23 15:40 Const General: cooperative, healthy appearing and no acute distress Orientation/consciousness: patient oriented x3 GI Inspection: Yes normal to inspection Palpation (GI): Soft to palpation and Other GI palpation findings present (Nontender) Rectal Exam - Female: visual inspection normal General: Yes bladder normal to palpation External Female Exam: normal appearance of the urethra Speculum Exam - Vagina: normal appearance of the vagina, normal palpation, normal vaginal discharge and vaginal bleeding (Small amount of brown blood, dry vaginal mucosa) Speculum Exam - Cervix: normal appearance of the cervix, normal palpation and Other cervical findings present (IUD strings present) Bimanual exam- vagina & uterus: normal bimanual exam, normal palpation, uterine size normal, bladder normal to palpation, normal palpation, uterine shape normal and non-tender Bimanual Exam- Adnexa, other: normal adnexae OB/external & speculum: vaginal bleeding (Small amount of brown blood, dry vaginal mucosa) Neuro General: patient oriented x3 Office Procedures Contraception Insert/Removal Details Details: The patient presents today for a IUD removal. She is planning have a vasectomy and use of condoms. She was counseled regarding the removal of her IUD. She was consented for the procedure along with anticipatory guidance for the removal and the consents form was signed. She desires to proceed with the IUD removal. IUD Removal Procedure: The patient was placed in the dorsal lithotomy position. A speculum was inserted vaginally and the cervix and strings were visualized at the os. A ring forcep was utilized, and the patient was asked to give a deep cough while the strings were grasped and gently tugged at the same time, removing the IUD device intact. Minimal bleeding was observed. All of the equipment was removed. The patient tolerated the procedure well and left the office in good condition. IUD Removal Information: You may have light bleeding for several days, tapering off to a brown or pink color. Mild cramping after removal is common. If not allergic, you may take an over the counter mild analgesic for the discomfort, such as Tylenol or Advil (use dosing and frequency per the manufacturers recommendations). Call the office if you experience: fever (over 100.4), flu like symptoms, abdominal or pelvic pain, foul smelling discharge or heavy bleeding. This note is constructed using voice recognition software. While every effort has been made to ensure accuracy, senior svp errors may have been included. 56693 - Removal Results AMB Test Urine AMB Test Urine Negative Last Edit by IRIS Davidson on 11/27/23 15:44 Results Reviewed Results Reviewed: Laboratory Last Values [facility] Clinic Negative 11/27/23 15:44 Assessment & Plan Assessment & Plan (1) Encounter for IUD removal: Code(s): Z30.432 - Encounter for removal of intrauterine contraceptive device Plan Discussed: Patient has a follow up appointment to check on the fibroids for a six-month stability check, and a results appointment scheduled. Advised to monitor her cycles if she has a repeated pattern or episodes of abnormal uterine bleeding to report to the office to complete an EMB. Observe for pelvic pain/dyspareunia if any concerns to return to the office sooner. All of her questions and concerns were addressed to the best of my ability and shared decision making. She is agreeable to the plan of care. This note is constructed using voice recognition software. While every effort has been made to ensure accuracy, senior svp errors may have been included. Orders: Orders AMB HCG Urine Test Today Z32.02 - Encounter for test, result negative Coding Level of Care Code Procedure Only Diagnoses Encounter for IUD removal Z30.432 CPT Codes Details - Contraception: 33549 - Removal ([id number])
[2023-11-27 15:40] VITALS: BP 110/68
== END 2023-11-27 16:29 | disposition home or self-care (01) ==
PROVIDERS: PCP Internal Medicine; Visit Provider Advanced Practice Midwife
DX: Z30.432 Encounter for removal of intrauterine contraceptive device (principal); Z32.02 Encounter for pregnancy test, result negative
CPT/HCPCS: 58301

== ENCOUNTER → 2023-11-27 15:20 | Outpatient (BNVA) | payer BC, SELFPAY | PROVIDERS: PCP Internal Medicine; Visit Provider Advanced Practice Midwife | DX: Z30.432 Encounter for removal of intrauterine contraceptive device (principal) | CPT/HCPCS: 58301; 81025 ==

== ENCOUNTER 2024-03-27 12:42 | Outpatient (REF) | payer BC, SELFPAY ==
--- OUTSIDE RECORDS SUMMARY | 2024-03-27 12:43 | XMS_ITS | Data Portability ---
Author Organization [facility], [address] Address [address] [place] [address] Assessment No assessment recorded. Plan of Treatment Reminders Order Date Submit Date Provider Last Modified By Organization Details Last Modified Time Details Appointments None recorded. Lab None recorded. Referral None recorded. Procedures None recorded. Surgeries None recorded. Imaging XR, ankle, 3 or more view 2023 024 [facility], [address] [place] [address], [address], 15:43:16 Medication Orders montelukast 10 mg tablet [address] [facility], [address] [place] [address], [address], 13:51:59 prednisone 50 mg tablet [address] [facility] [address] [place] [address], [address], 13:52:19 Patient TargetsNo targets recorded. Patient Instructions Encounter Date Encounter Id Patient Instructions Last Modified By Organization Details Last Modified Time 02/06/2024 [id number] ankle sprain: care instructions [id number] Not available 02/06/2024 14:43:02 ankle sprain: rehab exercises [id number] Not available 02/06/2024 14:43:01 learning about rice (rest, ice, compression, and elevation) [id number] Not available 02/06/2024 14:43:02 See printed instructions. Follow-up with your doctor if no improvement in 1 week. Seek Emergency Medical evaluation for any worsening symptoms. [id number] Not available 02/06/2024 14:42:40 Reason for Referral None Reported. Results Created Date Observation Date Name Description Value Unit Range Abnormal Flag Note LastModifiedBy Organization Detail LastModifiedTime 02/06/2002/06/2024 XR, ankle , 3 or more view No observ ation record ed. [email or web address] [address] [place], [address], 02/07/2024 18:55:53 Result Notes None recorded. Problems Name Problem SNOMED Code Status Onset Date Resolution Date Notes Provider Name and Address Organization Details Recorded Time Seasonal allergic rhinitis 117393298 Active 024 Tru Gracia, DO [address] [place] , [place], [address] [facility] - [facility] 11:57:44 Contact dermatitis 40435139 Active Antonella O'Todd null, [place] - [facility] 13:54:03 Joint pain 78927868 Active Antonella O'Todd null, [place] - [facility] 4 13:54:28 Problem Notes None recorded. Procedures Surgical History None recorded. Imaging Results Imaging Date Name Status LastModified by Organiz ation Details LastModified Time 02/06/2024 XR, ankle, 3 or more view completed [email or web address] [address] [place], [address], 02/07/2024 18:55:53 Procedure Notes None recorded. Medical Equipment None Reported. Medications Name Sig Start Date Stop Date Status Note LastModified by Organization Details LastModified Time pataday 0.7% wale INSTILL 1 DROP INTO EACH EYE 1 TO 2 TIMES DAILY NEEDED 02/05 completed Not Available Not Available Not Available metronidazol e 500 mg tablet TAKE 1 TABLET BY MOUTH EVERY 12 HOURS FOR 7 DAYS 10/02 completed Not Available Not Available Not Available omeprazole 40 mg capsule,marichuy yed release TAKE 1 CAPSULE BY MOUTH TWICE DAILY 10/02 completed Not Available Not Available Not Available tramadol 50 mg tablet TAKE 1 TABLET BY MOUTH EVERY 6 HOURS NEEDED FOR PAIN active Not Available Not Available No t Available prednisone 50 mg tablet TAKE 1 TABLET BY MOUTH ONCE DAILY FOR 3 DAYS 02/05 completed Not Available Not Available Not Available montelukast 10 mg tablet TAKE 1 TABLET BY MOUTH ONCE DAILY FOR 30 DAYS 02/05 completed Not Available Not Available Not Available sodium chloride 1,000 mg soluble tablet TAKE ONE TABLET BY MOUTH UPON WAKING AND REPEAT AFTER 4 HOURS active Not Available Not Available No t Available Dupixent Pen active Not Available Not Available Not Available Vitals Date Recorded Body height Body mass index (BMI) Body weight Oxygen saturation Oxygen saturation in Arterial blood by Pulse oximetry Heart rate Respiratory rate Body temperature Systolic blood pressure Diastolic blood pressure Provider Name and Address Organization Details Last Updated DateTime 4 175.26 cm 26.3 kg/m2 97668.4 4 g 97 % 97 % 67 /min 18 /min 98.5 [degF] 111 mm[Hg] 75 mm[Hg] Antonella Lacey [facility] - [facility] 4 11:31:48 Date Recorded Body height Body mass index (BMI) Body weight Oxygen saturation Oxygen saturation in Arterial blood by Pulse oximetry Heart rate Body temperature Systolic blood pressure Diastolic blood pressure Provider Name and Address Organization Details Last Updated DateTime 4 175.26 cm 25.8 kg/m2 89952.6 6 g 97 % 97 % 68 /min 98 [degF] 115 mm[Hg] 73 mm[Hg] Antonella Lacey [place] - [facility] 4 13:51:05 Social History Question Answer Notes LastModified by Organizat ion Details LastModified Time What Is Your Level Of Alcohol Consumption? Occasional Information not available 10/03/2023 Are You Currently Employed? Yes Information not available 10/03/2023 Which Illicit Or Recreational Drugs Have You Used? Marijuana Information not available 10/03/2023 Have You Had A Flu Shot This Season? No Information no t available 02/06/2024 If No, Would You Like A Flu Shot Today? Yes Information not available 10/03/2023 Have You Had Direct Contact, Or Contact During Intimacy, With Monkeypox Rash, Scabs, Or Body Fluids From A Person With Monkeypox? No Information not available 10/03/2023 What Is Your Relationship Status? Information not available 10/03/2023 Do You Use Any Illicit Or Recreational Drugs? Yes Information not available 10/03/2023 Have You Recently Traveled Abroad? No Information not available 10/03/2023 Are You Currently In School? No Information not available 10/03/2023 Do You Or Have You Ever Used Any Other Forms Of Tobacco Or Nicotine? No Information not available 10/03/2023 Sex: Unknown Functional Status None recorded. Mental Status None recorded. Family History Nothing Reported. Medical History No medical history recorded. Gynecological History Statement/Question Response Date of LMP 01/23/2024 LMP N/A Obstetrics History GPAL:G 0 P 0 0 0 0 Past Encounters Encounter ID Performer Location Encounter Start Date Encounter Closed Date Diagnosis/Indication Diagnosis SNOMED-CT Code Diagnosis ICD10 Code [id number] [address] [address] 10/15/2018 08:17:03 10/15/2018 08:58:22 [id number] [place] [address] [address] 10/03/2023 11:19:39 10/03/2023 12:00:36 Seasonal allergic rhinitis 298903406 J30.2 [id number] SANTINO RAGLAND [place] [address] [address] 02/06/2024 13:28:13 02/06/2024 14:43:46 Injury of right ankle 3606500454 5454400 S99.911A Sprain of right ankle 11 72914459 0344093 S93.401A Health Concerns Section Related Observation LastModified by Organization Detai ls LastModified Time None Recorded Concern Status LastModified by Organization Details LastModified Time None Recorded Advance Directives Directive None Recorded Payers Encounter Date Sequence Insurance Name Policy Number Policy Castellanos Covered Member ID Castellanos Member ID Guarantor Name 10/03/2023 1 [employer]: HECTOR (PPO) [id number] Antoinette Chavarria [id number] Antoinette Chavarria 02/06/2024 1 [place] [id number] Antoinette Chavarria [id number] Antoinette Chavarria Notes Date Note Type Note Provider Name and Address Organization Details Recorded Time 10/03/2023 text/html last week pt has sinus problems she took over the counter meds, she now feels chest congestion since Saturday she still feels a little stuffy pt has a history of nasal polyps since 2016. NO FEVERS. HAS SEASONAL ALLERGIES. SEES ALLERIST. NO TAKING PSEUDOPHED. NO SOB. NO BLOOD OR VOMITTING C COUGH Tru Gracia DO [address] [place], [address], [place] [facility] 10/03/2023 12:07:03 02/06/2024 text/html 28 y F c/o right ankle pain. She describes taking a step back when she fell and twisted her right ankle today. The ankle has swelled, is painful and she is unable to bear weight on it even while using a cane.. SANTINO RAGLAND MD [address] [place], [address], [place] [facility] 02/06/2024 14:48:04 OBGyn Episode No OBEpisode recorded.
--- OUTSIDE RECORDS SUMMARY | 2024-03-27 12:44 | XMS_ITS ---
Author Name [facility] Organization Unknown History of Medication Use Medication Directions Dispensed Refills Start Date End Date Stat traMADol (ULTRAM) 50 MG tablet Take 1 tablet (50 mg total) by mouth 4 times daily (every 6 hours) as needed. for pain 07/05/2023 active sodium chloride 1 g tablet TAKE ONE TABLET BY MOUTH UPON WAKING AND REPEAT AFTER 4 HOURS 07/05/2023 active dupilumab (Dupixent) 300 MG/2ML pen injector Inject under the skin once. 07/05/2023 active Problems Problem Status Onset Date Problem Type Date of Resoluti on Source Postural orthostatic tachycardia syndrome (POTS) active EncounterDiagnosisAct CCT
--- OUTSIDE RECORDS SUMMARY | 2024-03-27 12:44 | XMS_ITS | Continuity of Care Document ---
Author Organization [facility] [address] Address [address] [place] [address] Assessment No assessment recorded. Plan of Treatment Reminders Order Date Submit Date Provider Last Modified By Organization Details Last Modified Time Details Appointments None record ed. Lab None record ed. Referral None record ed. Procedures None record ed. Surgeries None record ed. Imaging XR, ankle, 3 or more view 024 02/06/20 [facility], [address] [place], [address], 15:43:16 Medication Orders None record ed. Patient TargetsNo targets recorded. Patient Instructions Encounter Date Encounter Id Patient Instructions Last Modified By Organization Details Last Modified Time 02/06/2024 [id number] ankle sprain: care instructions [id number] Not available 02/06/2024 14:43:02 ankle sprain: rehab exercises [id number] Not available 02/06/2024 14:43:01 learning about rice (rest, ice, compression, and elevation) [email or web address] Not available 02/06/2024 14:43:02 See printed instructions. Follow-up with your doctor if no improvement in 1 week. Seek Emergency Medical evaluation for any worsening symptoms. [id number] Not available 02/06/2024 14:42:40 Reason for Referral None Reported. Results Created Date Observation Date Name Description Value Unit Range Abnormal Flag Note LastModifiedBy Organization Detail LastModifiedTime 02/06/2002/06/2024 XR, ankle , 3 or more view No observ ation record ed. [email or web address] [address] [place], [address], 02/07/2024 18:55:53 Result Notes None recorded. Problems Name Problem SNOMED Code Status Onset Date Resolution Date Notes Provider Name and Address Organization Details Recorded Time Seasonal allergic rhinitis 428379403 Active 024 Tru Gracia, DO [address] [place], [address] [facility] PA - [facility] 4 11:57:44 Contact dermatitis 57875037 Active Antonella O'Todd null, PA - [facility] 4 13:54:03 Joint pain 72192457 Active Antonella O'Todd null, [place] - [facility] 4 13:54:28 Problem Notes None recorded. Medical Equipment None Reported. [...] Updated DateTime 4 175.26 cm 25.8 kg/m2 71296.6 6 g 97 % 97 % 68 /min 98 [degF] 115 mm[Hg] 73 mm[Hg] Antonella Lacey PA - [facility] 13:51:05 Social History Question Answer Notes LastModified [...] Diagnosis/Indication Diagnosis SNOMED-CT Code Diagnosis ICD10 Code [id number] SANTINO RAGLAND [place] [address] [address] 02/06/2024 13:28:13 02/06/2024 14:43:46 Injury of right ankle 5933254841 0014563 S99.911A Sprain of right ankle 11 76836132 5414862 S93.401A Health Concerns Section Related Observation LastModified by Organization Detai ls LastModified Time None Recorded Concern Status LastModified by Organization Details LastModified Time None Recorded Payers Encounter Date Sequence Insurance Name Policy Number Policy Castellanos Covered Member ID Castellanos Member ID Guarantor Name 02/06/2024 1 [place] [id number] Antoinette Chavarria [id number] Antoinette Chavarria Notes Date Note Type Note Provider Name and Address Organization Details Recorded Time 02/06/2024 text/html 28 y F c/o right ankle pain. She describes taking a step back when she fell and twisted her right ankle today. The ankle has swelled, is painful and she is unable to bear weight on it even while using a cane.. SANTINO RAGLAND MD [address] [place], [address], [place] - [facility] 02/06/2024 14:48:04 OBGyn Episode No OBEpisode recorded."
== END 2024-03-27 12:43 | disposition home or self-care (01) ==
LOC: HO.US 12:42
PROVIDERS: PCP Internal Medicine; Visit Provider Advanced Practice Midwife
DX: D21.9 Benign neoplasm of connective and other soft tissue, unspecified (principal)
CPT/HCPCS: 76830; 76856

== ENCOUNTER 2024-04-02 15:27 | Outpatient (REF) | payer BC, SELFPAY ==
--- OUTSIDE RECORDS SUMMARY | 2024-04-02 18:46 | XMS_ITS | Continuity of Care Document ---
Author Organization [facility] [address] Address [address] [place] [address] Assessment No assessment recorded. Plan of Treatment Reminders Order Date Submit Date Provider Last Modified By Organization Details Last Modified Time Details Appointments None record ed. Lab None record ed. Referral None record ed. Procedures None record ed. Surgeries None record ed. Imaging XR, ankle, 3 or more view 024 02/06/20 [facility], [address] [place], [address], 15:43:16 Medication Orders None record ed. Patient TargetsNo targets recorded. Patient Instructions Encounter Date Encounter Id Patient Instructions Last Modified By Organization Details Last Modified Time 02/06/2024 [id number] ankle sprain: care instructions [id number] Not available 02/06/2024 14:43:02 ankle sprain: rehab exercises [id number] Not available 02/06/2024 14:43:01 learning about rice (rest, ice, compression, and elevation) [id number] Not available 02/06/2024 14:43:02 See printed instructions. Follow-up with your doctor if no improvement in 1 week. Seek Emergency Medical evaluation for any worsening symptoms. [id number] Not available 02/06/2024 14:42:40 Reason for Referral None Reported. Results Created Date Observation Date Name Description Value Unit Range Abnormal Flag Note LastModifiedBy Organization Detail LastModifiedTime 02/06/2002/06/2024 XR, ankle , 3 or more view No observ ation record ed. [email or web address] [address] [place], [address], 02/07/2024 18:55:53 Result Notes None recorded. Problems Name Problem SNOMED Code Status Onset Date Resolution Date Notes Provider Name and Address Organization Details Recorded Time Seasonal allergic rhinitis 947137676 Active 024 Tru Gracia, DO [address] [place], [address] [email or web address] PA - [facility] 4 11:57:44 Contact dermatitis 62865877 Active Antonella O'Todd null, PA - [facility] 4 13:54:03 Joint pain 77246965 Active Antonella O'Todd null, [facility] - [facility] [...] Updated DateTime 4 175.26 cm 25.8 kg/m2 92423.6 6 g 97 % 97 % 68 [...] Diagnosis/Indication Diagnosis SNOMED-CT Code Diagnosis ICD10 Code [id number] S[place]INO RAGLAND [place] [address] [address] 02/06/2024 13:28:13 02/06/2024 14:43:46 Injury of right ankle 8071964060 5290175 S99.911A Sprain of right ankle 11 30356375 6766512 S93.401A Health Concerns Section Related Observation LastModified by Organization Detai ls LastModified Time None Recorded Concern Status LastModified by Organization Details LastModified Time None Recorded Payers Encounter Date Sequence Insurance Name Policy Number Policy Castellanos Covered Member ID Castellanos Member ID Guarantor Name 02/06/2024 1 [place] [id number] Antoinette Chavarria [id number] Antoinette Chavarria Notes Date Note Type [...] RAGLAND MD [address] [place], [address], [place] - [facility] 02/06/2024 14:48:04 OBGyn Episode No OBEpisode recorded.
--- OUTSIDE RECORDS SUMMARY | 2024-04-02 18:46 | XMS_ITS | Data Portability ---
Author Organization [facility], [address] Address [address] [place] [address] Assessment No assessment recorded. Plan of Treatment Reminders Order Date Submit Date Provider Last Modified By Organization Details Last Modified Time Details Appointments None recorded. Lab None recorded. Referral None recorded. Procedures None recorded. Surgeries None recorded. Imaging XR, ankle, 3 or more view 2023 024 [facility], [address] [place] [address], [address], 15:43:16 Medication Orders montelukast 10 mg tablet 2023 024 [facility], [address] [place] [address], [address], 13:51:59 prednisone 50 mg tablet 2023 024 [facility] [address] [place] [address], [address], 13:52:19 Patient TargetsNo targets recorded. Patient Instructions Encounter Date Encounter Id Patient Instructions Last Modified By Organization Details Last Modified Time 02/06/2024 [id number] ankle sprain: care instructions [email or web address] Not available 02/06/2024 14:43:02 ankle sprain: rehab exercises [id number] Not available 02/06/2024 14:43:01 learning about rice (rest, ice, compression, and elevation) [email or web address] Not available 02/06/2024 14:43:02 See printed instructions. Follow-up with your doctor if no improvement in 1 week. Seek Emergency Medical evaluation for any worsening symptoms. [email or web address] Not available 02/06/2024 14:42:40 Reason for Referral None Reported. Results Created Date Observation Date Name Description Value Unit Range Abnormal Flag Note LastModifiedBy Organization Detail LastModifiedTime 02/06/2002/06/2024 XR, ankle , 3 or more view No observ ation record ed. [email or web address] [address] [place], [address], 02/07/2024 18:55:53 Result Notes None recorded. Problems Name Problem SNOMED Code Status Onset Date Resolution Date Notes Provider Name and Address Organization Details Recorded Time Seasonal allergic rhinitis 680268259 Active 024 Tru Gracia, DO [address] [place] , [place], [address] [facility] [place] - [facility] 11:57:44 Contact dermatitis 02412388 Active Antonella O'Todd null, [place] - [facility] 13:54:03 Joint pain 30062235 Active Antonella O'Todd null, [place] - [facility] 4 13:54:28 Problem Notes None recorded. Procedures Surgical History None recorded. Imaging Results Imaging Date Name Status LastModified by Organiz ation Details LastModified Time 02/06/2024 XR, ankle, 3 or more view completed [email or web address] [address] [place], [address], 02/07/2024 18:55:53 Procedure Notes None recorded. Medical [...] Updated DateTime 4 175.26 cm 26.3 kg/m2 32312.4 4 g 97 % 97 % 67 /min 18 /min 98.5 [degF] 111 mm[Hg] 75 mm[Hg] Antonella Lacey [facility] 4 11:31:48 Date Recorded Body height Body mass index (BMI) Body weight Oxygen saturation Oxygen saturation in Arterial blood by Pulse oximetry Heart rate Body temperature Systolic blood pressure Diastolic blood pressure Provider Name and Address Organization Details Last Updated DateTime 4 175.26 cm 25.8 kg/m2 58509.6 6 g 97 % 97 % 68 [...] Diagnosis/Indication Diagnosis SNOMED-CT Code Diagnosis ICD10 Code [id number] [address] [address] 10/15/2018 08:17:03 10/15/2018 08:58:22 [id number] [place] [address] [address] 10/03/2023 11:19:39 10/03/2023 12:00:36 Seasonal allergic rhinitis 440322319 J30.2 [id number] SANTINO RAGLAND MD [address] [address] 02/06/2024 13:28:13 02/06/2024 14:43:46 Injury of right ankle 7669725725 7177019 S99.911A Sprain of right ankle 11 78641545 4319505 S93.401A Health Concerns Section Related Observation LastModified by Organization Detai ls LastModified Time None Recorded Concern Status LastModified by Organization Details LastModified Time None Recorded Advance Directives Directive None Recorded Payers Encounter Date Sequence Insurance Name Policy Number Policy Castellanos Covered Member ID Castellanos Member ID Guarantor Name 10/03/2023 1 [employer]: HECTOR (PPO) [id number] Antoinette Chavarria [id number] Antoinette Chavarria 02/06/2024 1 [place] [id number] Antoinette Chavarria [id number] Antoinette Chavarria Notes Date Note Type [...] Tru Gracia DO [address] [place], [address], [place] [facility] 10/03/2023 12:07:03 02/06/2024 text/html 28 y F c/o right ankle pain. She describes taking a step back when she fell and twisted her right ankle today. The ankle has swelled, is painful and she is unable to bear weight on it even while using a cane.. SANTINO RAGLAND MD [address] [place], [address], [place] [facility] 02/06/2024 14:48:04 OBGyn Episode No OBEpisode recorded.
== END 2024-04-02 15:28 | disposition home or self-care (01) ==
LOC: HO.MAMMO 15:27
PROVIDERS: PCP Internal Medicine; Visit Provider Advanced Practice Midwife
DX: Z12.31 Encounter for screening mammogram for malignant neoplasm of breast (principal)
CPT/HCPCS: 77063; 77067

== ENCOUNTER → 2024-04-02 15:45 | Outpatient (BNV) | payer BC, SELFPAY | PROVIDERS: PCP Internal Medicine; Visit Provider Internal Medicine | DX: Z12.31 Encounter for screening mammogram for malignant neoplasm of breast (principal) | CPT/HCPCS: 77063; 77067 ==

== ENCOUNTER 2024-06-04 14:54 | Outpatient (REF) | payer BC, SELFPAY ==
--- NOTE | ~2024-06-04 | US_ITS ---
EXAMINATION: US PELVIS CLINICAL INFORMATION: Unspecified ovarian cyst. COMPARISON: March 27, 2024 demonstrated uterine fibroids and 2.2 cm cystic structure right ovary. TECHNIQUE: Ultrasound of the pelvis is performed using both transabdominal and transvaginal transducers along with Doppler. Transvaginal imaging is performed due to inadequate visualization transabdominally. FINDINGS: Uterus: The uterus is anteverted and measures 8 x 4 x 6 cm. Heterogeneous nodular myometrium with the multifocal different sizes isoechoic nodular lesions in the myometrium and 1 submucosal. There are 5 nodular lesions identified by ultrasound measuring 0.4-1.1 cm in maximum dimensions. The uterine cervix appears normal. Uterus volume: 117 cc. The double wall endometrial thickness is 10 mm. Heterogeneous nodular myometrium. . Adnexa: Both ovaries are visualized. There is normal color flow to the adnexa. There is no ovarian torsion. There is no pelvic ascites or fluid collection. Right ovary measures 3 x 2 x 2 cm. Volume: 4 cc. There is a 1.5 cm slightly hypoechoic lesion without flow on color Doppler interrogation. Left ovary measures 4 x 2 x 2 cm. Volume: 9 cc.. There is a 1.8 cm lobulated anechoic lesion without flow on color Doppler interrogation. US/US pelvic and transvaginal IMPRESSION: Multiple uterine fibroids measuring less than 1.1 cm with probable 1 submucosal. No ovarian torsion. 1.5 cm dominant follicle versus simple cyst, left ovary. 1.5 cm complex cystic lesion, right ovary. Consider IV contrast-enhanced MRI pelvis. Electronically signed by: Dennis Armstrong MD 06/05/2024 10:07 AM MRACELINO
--- OUTSIDE RECORDS SUMMARY | 2024-06-04 16:01 | XMS_ITS | Clinical Summary ---
Author Organization [facility], Located Within [facility] Address [address] [place] [address] Care Team Providers Care Chefs Name Role Phone Gilberto Regan MD Primary Care Provider [phone]- [phone] Thomas Aly PA-C Unavailable + [phone] Allergies Active Allergy Reactions Criticality Noted Date Comments Cinnamon Unknown/Patient and Family Unable to Define Medium 02/05/2019 [facility] Unknown/Patient and Family Unable to Define Medium 02/05/2019 Nickel Unknown/Patient and Family Unable to Define Medium 02/05/2019 Medications Medication Sig Dispensed Refills Start Date End Date Status traMADol (ULTRAM) 50 MG tablet Take 1 tablet (50 mg total) by mouth 4 times daily (every 6 hours) as needed. for pain 06/02/2023 Active dupilumab (Dupixent) 300 MG/2ML pen injector Inject under the skin once. Active sodium chloride 1 g tabletIndications:Hear t palpitations Take 1 tablet (1 g total) by mouth 2 times a day. 180 tablet 1 04/30/2024 Active Encounters Date Type Department Care Team Description 04/30/2024 Refill [facility] Heart & Vascular [place] at [facility] - Cardiology [address] [place] [phone] Thomas Aly PA-C from Last 3 Months Social History Tobacco Use Types Packs/Day Years Used Date Smoking Tobacco: Never Assessed Sex and Gender Information Value Date Recorded Sex Assigned at Female 05/20/2023 11:15 AM EST Gender Identity Female 05/20/2023 11:15 AM EST Sexual Orientation Heterosexual (straight) 05/20 11:15 AM EST Last Filed Vital Signs Vital Sign Reading Time Taken Comments Blood Pressure 104/62 09/04/2023 9:11 AM EDT Pulse 65 09/04/2023 9:11 AM EDT Temperature - - Respiratory Rate - - Oxygen Saturation 96% 07/02/2023 3:11 PM EDT Inhaled Oxygen Concentration - - Weight 82 kg (180 lb 12.8 oz) 07/02/2023 3:11 PM EDT Height - - Body Mass Index - - Plan of Treatment Health Maintenance Due Date Last Done Comments Hepatitis C Virus Screening 1984 COVID-19 Vaccine (#1) 02/19/1989 HIV Screening 02/19/1997 DTaP/Tdap/Td Vaccines (1 - Tdap) 02/19/2003 Hepatitis B Vaccines (1 of 3 - 19+ 3-dose series) 02/19/2003 Pneumococcal Vaccine: Pediat cirilo (0-5 Years) and At-Risk Patients (6 to 49 Years) (1 of 2 - PCV) 02/19/2003 Pap Smear (Ages 21-65) 02/19/2005 Influenza Vaccine 11/14/2023 Mammogram 2024 HPV Vaccines Aged Out No longer eligi ble based on patient's age to complete this topic Care Teams Chefs Relationship Specialty Start Date End Date Gilberto Regan MD [address] [facility] [address] [place] [address] PCP - General 05/20/23 Thomas Aly PA-C [address] [place] [address] Physician Seo Marketing Specialist Cardiac Electrophysiology 09/27/23
--- OUTSIDE RECORDS SUMMARY | 2024-06-04 16:01 | XMS_ITS | Data Portability ---
Author Organization [facility], [address] Address [address] [place] [address] Assessment No assessment recorded. Plan of Treatment Reminders Order Date Submit Date Provider Last Modified By Organization Details Last Modified Time Details Appointments None recorded. Lab None recorded. Referral None recorded. Procedures None recorded. Surgeries None recorded. Imaging XR, ankle, 3 or more view 2023 024 [facility], [address] [place] [address], [address], 15:43:16 Medication Orders montelukast 10 mg tablet [address] [facility], [address] [place] [address], [address], 13:51:59 prednisone [address] [facility] [address] [place] [address], [address], 13:52:19 Patient TargetsNo targets recorded. Patient Instructions Encounter Date Encounter Id Patient Instructions Last Modified By Organization Details Last Modified Time 02/06/2024 [id number] ankle sprain: care instructions [id number] Not available 02/06/2024 14:43:02 ankle sprain: rehab exercises [id number] Not available 02/06/2024 14:43:01 learning about rice (rest, ice, compression, and elevation) [id number] Not available 02/06/2024 14:43:02 See printed instructions. Follow-up with your doctor if no improvement in 1 week. Seek Emergency Medical evaluation for any worsening symptoms. [email or web address] Not available 02/06/2024 14:42:40 Reason for Referral None Reported. Results Created Date Observation Date Name Description Value Unit Range Abnormal Flag Note LastModifiedBy Organization Detail LastModifiedTime 02/06/2002/06/2024 XR, ankle , 3 or more view No observ ation record ed. [email or web address] [address] [place], [address], 02/07/2024 18:55:53 Result Notes None recorded. Problems Name Problem SNOMED Code Status Onset Date Resolution Date Notes Provider Name and Address Organization Details Recorded Time Seasonal allergic rhinitis 322452177 Active 024 Tru Gracia, DO [address] [place] , [place], [address] [facility] [place] - [facility] 11:57:44 Contact dermatitis 90199977 Active Antonella O'Todd null, [place] - [facility] 13:54:03 Joint pain 01652410 Active Antonella O'Todd null, [place] - [facility] 4 13:54:28 Problem Notes None recorded. Procedures Surgical History None recorded. Imaging Results Imaging Date Name Status LastModified by Organiz ation Details LastModified Time 02/06/2024 XR, ankle, 3 or more view completed [email or web address] [address] [place], [address], 02/07/2024 18:55:53 Procedure Notes None recorded. Medical [...] Updated DateTime 4 175.26 cm 26.3 kg/m2 14249.4 4 g 97 % 97 % 67 /min 18 /min 98.5 [degF] 111 mm[Hg] 75 mm[Hg] Antonella Lacey [facility] 4 11:31:48 Date Recorded Body height Body mass index (BMI) Body weight Oxygen saturation Oxygen saturation in Arterial blood by Pulse oximetry Heart rate Body temperature Systolic blood pressure Diastolic blood pressure Provider Name and Address Organization Details Last Updated DateTime 4 175.26 cm 25.8 kg/m2 18516.6 6 g 97 % 97 % 68 [...] Diagnosis/Indication Diagnosis SNOMED-CT Code Diagnosis ICD10 Code Diagnosis Note [id number] [address] [address] 10/15/2018 08:17:03 10/15/2018 08:58:22 [id number] [place] [address] [address] 10/03/2023 11:19:39 10/03/2023 12:00:36 Seasonal allergic rhinitis 515953125 J30.2 See pcp in 3-4 days. Go to ER if anything worsens. Symptomati c treatment. NO ABX NEEDED. NO SINUS PAIN OR ANY OTHER WORRISOME SIGNS All of patients questions have been answered. Patient has understand ing and agreement of all of this. [id number] SANTINO RAGLAND MD [address] [address] 02/06/2024 13:28:13 02/06/2024 14:43:46 Injury of right ankle 0591893593 3896157 S99.911A Sprain of right ankle 11 97153723 1577947 S93.401A You can take Aleve as directed on the packaging for pain management . You can take Tylenol in between doses of Aleve. Health Concerns Section Related Observation LastModified by Organization Detai ls LastModified Time None Recorded Concern Status LastModified by Organization Details LastModified Time None Recorded Advance Directives Directive None Recorded Payers Encounter Date Sequence Insurance Name Policy Number Policy Castellanos Covered Member ID Castellanos Member ID Guarantor Name 10/03/2023 1 [place] [id number] Antionette Chavarria [id number] Antoinette Chavarria 02/06/2024 1 [place] [id number] Antoinette Chavarria [id number] Antoinette Chavarria Notes Date Note Type [...] Tru Gracia DO [address] [place], [address], [place] - [facility] 10/03/2023 12:07:03 02/06/2024 text/html 28 y F c/o right ankle pain. She describes taking a step back when she fell and twisted her right ankle today. The ankle has swelled, is painful and she is unable to bear weight on it even while using a cane.. SANTINO RAGLAND MD [address] [place], [address], [place] - [facility] 02/06/2024 14:48:04 OBGyn Episode No OBEpisode recorded.
== END 2024-06-04 14:55 | disposition home or self-care (01) ==
LOC: HO.US 14:54
PROVIDERS: PCP Internal Medicine; Visit Provider Advanced Practice Midwife
DX: N83.209 Unspecified ovarian cyst, unspecified side (principal)
CPT/HCPCS: 76830; 76856

== ENCOUNTER → 2024-06-04 14:56 | Outpatient (BNV) | payer BC, SELFPAY | PROVIDERS: PCP Internal Medicine; Visit Provider Radiology Diagnostic Radiology | DX: D25.1 Intramural leiomyoma of uterus (principal) | CPT/HCPCS: 76830; 76856 ==

== ENCOUNTER 2024-06-10 09:08 | Outpatient (AMB) | payer BC, SELFPAY ==
--- NOTE | 2024-06-10 09:08 | MHC.OFFVIS ---
Intake Visit Reasons: TV US results Intake Note: cell #[phone] Franchise Specialist: Franchise Specialist Present Allergies cinnamon [CINNAMON] Allergy (Intermediate, Verified 06/10/24 09:09) HIVES [place] And Derivatives [CITRUS] Allergy (Intermediate, Verified 06/10/24 09:09) HIVES pineapple [PINEAPPLE] Allergy (Unknown, Verified 06/10/24 09:09) SWELLING OxyContin Allergy (Unknown, Uncoded 09/17/23 09:38) Unknown Seasonal IC Allergy (Unknown, Uncoded 09/17/23 09:38) Itchy Eyes Is last menstrual period known: Yes HPI Comments Details: Tele Health Visit Total time I personally spent on visit and management today: 25 minutes. Time spent included review of pertinent office notes in the electronic health record; review of laboratory and imaging results; review of personal family medical history; discussing diagnosis and plan of care with the patient; documenting the encounter in the EMR. Patient presents to discuss: Ultrasound findings, history of ovarian cyst, Multiple fibroids. History of Sjogren's, follow up by kidney specialist in the past. Has been trying to get into see a specialist for her rheumatology workup for some time. She reports random bilateral pelvic pain, not worsening. Planning a future not currently on control. 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 Female Reproductive History Menstrual Age of Menarche: 10 Review of Systems Const All systems reviewed & are unremarkable except as noted in HPI and below Endo Reports no additional complaints Physical Exam Const General: cooperative, healthy appearing and no acute distress Psych Appearance: well kempt Attitude: cooperative Thought process: Normal thought process present Telehealth Telehealth [facility] Location of provider rendering services: practice address Location of patient: address on file Patient Identification confirmed using: Name, : Yes Telehealth method: video Patient verbally consented to treatment: Yes Patient verbally consented to billing insurance company: Yes Patient informed of any privacy concerns related to visit: Yes Results Reviewed Results Reviewed: [address] [address] Ultrasound Report Signed Patient: Antoinette Chavarria MR#: [id number] : 1985 Acct:[id number] Age/Sex: 39 / F ADM Date: 06/04/24 Loc: HO.US Attending Dr: Marisa Finney CNM Ordering Physician: Marisa Finney CNM Date of Service: 06/04/24 Procedure(s): US pelvic and transvaginal Accession Number(s): [id number] cc: Jyotsna Regan MD; Marisa Finney CNM~ EXAMINATION: US PELVIS CLINICAL INFORMATION: Unspecified ovarian cyst. COMPARISON: March 27, 2024 demonstrated uterine fibroids and 2.2 cm cystic structure right ovary. TECHNIQUE: Ultrasound of the pelvis is performed using both transabdominal and transvaginal transducers along with Doppler. Transvaginal imaging is performed due to inadequate visualization transabdominally. FINDINGS: Uterus: The uterus is anteverted and measures 8 x 4 x 6 cm. Heterogeneous nodular myometrium with the multifocal different sizes isoechoic nodular lesions in the myometrium and 1 submucosal. There are 5 nodular lesions identified by ultrasound measuring 0.4-1.1 cm in maximum dimensions. The uterine cervix appears normal. Uterus volume: 117 cc. The double wall endometrial thickness is 10 mm. Heterogeneous nodular myometrium. . Adnexa: Both ovaries are visualized. There is normal color flow to the adnexa. There is no ovarian torsion. There is no pelvic ascites or fluid collection. Right ovary measures 3 x 2 x 2 cm. Volume: 4 cc. There is a 1.5 cm slightly hypoechoic lesion without flow on color Doppler interrogation. Left ovary measures 4 x 2 x 2 cm. Volume: 9 cc.. There is a 1.8 cm lobulated anechoic lesion without flow on color Doppler interrogation. US/US pelvic and transvaginal IMPRESSION: Multiple uterine fibroids measuring less than 1.1 cm with probable 1 submucosal. No ovarian torsion. 1.5 cm dominant follicle versus simple cyst, left ovary. 1.5 cm complex cystic lesion, right ovary. Consider IV contrast-enhanced MRI pelvis. Electronically signed by: Dennis Armstrong MD 06/05/2024 10:07 AM EST Dictated By: Dennis Joiner MD Signed By: <Electronically signed by Dennis De Leon MD in OV> 06/05/24 1007 DD/ 1500 TD/TT: 06/04/24 1521 Erp Specialist: Assessment & Plan Assessment & Plan (1) Complex ovarian cyst: Code(s): N83.299 - Other ovarian cyst, unspecified side Category: Medical Plan: Counseled regarding findings of: Complex ovarian cyst, which is often benign, and most resolve on their own overtime. Some develop into premalignant or malignant tumors. Limitations of testing for diagnostic purposes. Further monitoring and evaluation is recommended with US, possible CT, or MRI study. If persists, or is indicated (Ca-125, Carbohydrate Antigen 19-9, & Carcinoembryonic Antigen) labs will be ordered and referral to [facility] or general gynecology for MD care if indicated for possible surgical consult. Follow up in person for test results. Advised to send for [facility] records including any information on renal functioning, notes pertinent to her medical conditions. Plan repeat pelvic ultrasound and follow up ultrasound appointment to be scheduled. We will need to review of her medical records lab work notes from her primary care due to history renal issues. All of her questions and concerns were addressed to the best of my ability and shared decision making. She is agreeable to the plan of care. This note is constructed using voice recognition software. While every effort has been made to ensure accuracy, musical string maker errors may have been included. (2) Fibroid: Code(s): D21.9 - Benign neoplasm of connective and other soft tissue, unspecified Plan Discussed: Ultrasound findings- Fibroids. Plan follow up ultrasound for monitoring. Orders: Orders US pelvic and transvaginal 07/27/24 D21.9 - Benign neoplasm of connective and other soft tissue, unspecified, N83.299 - Other ovarian cyst, unspecified side Coding Level of Care Code Est Pt Level 3 (16334) Diagnoses Complex ovarian cyst N83.299 Fibroid D21.9
--- OUTSIDE RECORDS SUMMARY | 2024-06-10 10:04 | XMS_ITS | Clinical Summary ---
Author Organization [facility] Address [address] [place] [address] Care Team Providers Care Percussion Welding Machine Operator Name Role Phone Gilberto Regan MD Primary Care Provider +1- [phone] Thomas Aly PA-C Unavailable + [phone] Allergies Active Allergy Reactions Criticality Noted Date Comments Cinnamon Unknown/Patient and Family Unable to Define Medium 02/05/2019 [facility] Unknown/Patient and Family Unable to Define Medium [...] Type Department Care Team Description 04/30/2024 Refill [facility] Heart & Vascular [place] at [facility] - Cardiology [address] [place] [phone] Thomas Aly PA-C from Last 3 Months [...] age to complete this topic Care Teams Percussion Welding Machine Operator Relationship Specialty Start Date End Date Gilberto Regan MD [address] [facility] [address] [place] [address] PCP - General 05/20/23 Thomas Aly PA-C [address] [place] [address] Physician Mine Development Engineer Cardiac Electrophysiology 09/27/23
--- OUTSIDE RECORDS SUMMARY | 2024-06-10 10:04 | XMS_ITS | Encounter Summary ---
Author Organization [facility] Address [address] [place] [address] Care Team Providers Care Exhibits Coordinator Name Role Phone Dwaine Buitrago MD Primary Care Provider Unava ilable Reason for Referral * Non HILLARY (Routine) - Authorized/Booked Specialty Diagnoses / Procedures Referred By Contac t Referred To Contact Rheumatology Diagnoses Fibromyalgia Procedures REFERRAL TO RHEUMATOLOGY Dwaine Buitrago MD [address] [place] [address] Lenin Nguyen MD [address] [place] [address] Referral ID Status Reason Start Date Expiration Date V isits Requested Visits Authorized [id number] Authorized/B ooked 02/06/2019 02/06/2020 12 12 Reason for Visit * Reason Onset Date Comments Top Case Assembler Feedback 02/06/2019 rheumatology Encounter Details Date Type Department Care Team Description 02/06/2019 Telephone Adult Medicine [address] [address] Dwaine Buitrago MD Top Case Assembler Feedback (rheumatology) Social History Tobacco Use Types Packs/Day Years Used Date Smoking Tobacco: Former Smokeless Tobacco: Never Comments:quit ~2013, on/off few years prior Alcohol Use Standard Drinks/Week Comments Yes 0 (1 standard drink = 0.6 oz pur e alcohol) rare Sex Assigned at Date Recorded Not on file documented as of this encounter Miscellaneous Notes * Telephone Encounter - Dwaine Buitrago MD - 02/06/2019 4:01 PM EDT noted * Telephone Encounter - Allison Weldon Rn - 02/06/2019 3:59 PM EDT Pt agrees to see Dr Nguyen in [place] * Telephone Encounter - Dwaine Buitrago MD - 02/06/2019 3:09 PM EDT Referral placed to Dr. Nguyen in [place] office, thanks Nurse triage: please contact patient ot inform her that [facility] does not see patientsfor fibromyalgia. I referred her to Dr. Nguyen at our [place] office, but if she would reather see Dr. Viera in [place], I am happy to refer there [facility]. thanks * Telephone Encounter - Agnieszka Cole - 02/06/2019 2:12 PM EDT Hi, You had placed an order for her to see Rheumatology at [facility], unfortunately they do not see for Fibromyalgia. The only office that does is either internal with Dr. Stokes or Dr. Viera in [place]. I have closed the order please place a new order for either doctor. Thank you documented in this encounter Plan of Treatment Not on file documented as of this encounter Visit Diagnoses Diagnosis Fibromyalgia- Primary Mylagia and myositis, unspecified documented in this encounter Care Teams Exhibits Coordinator Relationship Specialty Start Date End Date Dwaine Buitrago MD PCP - General Internal Medicine 12/05/18 documented as of this encounter
--- OUTSIDE RECORDS SUMMARY | 2024-06-10 10:04 | XMS_ITS | Clinical Summary ---
Author Organization [facility] Address [address] [place] [address] Care Team Providers Care Field Installer Name Role Phone Dwaine Buitrago MD Primary Care Provider Monty ilable Allergies Active Allergy Reactions Severity Noted Date Comments Cinnamon 02/05/2019 [place] 02/05/2019 Nickel 02/05/2019 Medications Medication Sig Dispensed Refills Start Date End Date Status PROAIR HFA 108 (90 Base) MCG/ACT Aero Soln 0 10/15/2018 Active clobetasol (TEMOVATE) 0.05 % cream To affected area 2-3 times daily for no more than 2-3 weeks, then only using on the weekends prn 45 g 1 01/13/2019 Active tramadol (ULTRAM) 50 MG tabletIndications:Fib romyalgia Take 1 Tab by mouth 2 times daily as needed for Pain. 60 Tab 0 02/05/2019 Active meloxicam (MOBIC) 15 MG tablet Take 1 Tab by mouth daily. 30 Tab 2 03/03/2019 Active methocarbamol (ROBAXIN) 750 MG tablet Take 1 Tab by mouth 3 times daily as needed for Other (muscle spasm (will cause sedation)). 15 Tab 0 03/03/2019 Active Active Problems Problem Noted Date Obesity (BMI 30.0-34.9) 02/05/2019 Depression 01/27/2019 Polycystic kidney 01/27/2019 POTS (postural orthostatic tachycardia s yndrome) 01/27/2019 Chronic back pain 01/27/2019 Environmental allergies Fibromyalgia Eczema Resolved Problems Problem Noted Date Resolved Date Asthma 02/05/2019 Immunizations Name Administration Dates Next Due Influenza Flu (PT Reported) 12/14/2018 Family History Medical History Relation Name Comments Diabetes Brother Hypertension Throat Cancer Father Hypertension, Hyperlipidemia CAD Maternal Grandfather s/p ID x2 Diabetes Maternal Grandmother Hyperte nsion Diabetes Mother Hypertension, H yperlipidemia No Known Problems Paternal Grandfather No Known Problems Paternal Grandmother Relation Name Status Comments Brother Alive Father Maternal Grandfather Maternal Grandmother Mother Alive Paternal Grandfather Paternal Grandmother Social History Tobacco Use Types Packs/Day Years Used Date Smoking Tobacco: Former Smokeless Tobacco: Never Comments:quit ~2013, on/off few years prior Alcohol Use Standard Drinks/Week Comments Yes 0 (1 standard drink = 0.6 oz pur e alcohol) rare Sex Assigned at Date Recorded Not on file Last Filed Vital Signs Vital Sign Reading Time Taken Comments Blood Pressure 110/70 03/03/2019 3:50 PM EST Pulse 80 02/05/2019 3:37 PM EDT Temperature 36.9 ??C (98.4 ??F) 03/03/2019 3:50 PM ES T Respiratory Rate 14 02/05/2019 3:37 PM EDT Oxygen Saturation - - Inhaled Oxygen Concentration - - Weight 98.3 kg (216 lb 12.8 oz) 03/03/2019 3:50 PM EST Height 173.4 cm (5' 8.25 ) 03/03/2019 3:50 PM ES T Body Mass Index 32.72 03/03/2019 3:50 PM EST Plan of Treatment Health Maintenance Due Date Last Done Comments Covid-19 Vaccine (#1) 1984 DTAP/TDAP/TD (1 - Tdap) 02/19/2003 PNEUMOCOCCAL VACCINE FOR HIG H RISK PATIENTS (#1) 02/19/2003 CERVICAL CANCER SCREENING 02/19/2005 INFLUENZA (#1) 2023 12/14/2018, 09/0 04/2018 (External Completion of Vaccination per patient) CHOLESTEROL SCREENING 02/06/2024 02/05/2019 BASELINE HEALTH EXAM 40-64 2024 02/05/2019, MAMMOGRAM 2024 BMI CHECK/ADVISE 04/15/2024 02/05/2019, 01/13/2019 Care Teams Field Installer Relationship Specialty Start Date End Date Dwaine Buitrago MD PCP - General Internal Medicine 12/05/18
--- OUTSIDE RECORDS SUMMARY | 2024-06-10 10:05 | XMS_ITS | Data Portability ---
Author Organization [facility] [address] Address [address] [place] [address] Assessment No assessment recorded. Plan of Treatment Reminders Order Date Submit Date Provider Last Modified By Organization Details Last Modified Time Details Appointments None recorded. Lab None recorded. Referral None recorded. Procedures None recorded. Surgeries None recorded. Imaging XR, ankle, 3 or more view 2023 024 [facility], [address] [place] [address], [address], 15:43:16 Medication Orders montelukast 10 mg tablet 2023 024 [facility], [address] [place] [address], [address], 13:51:59 prednisone 50 mg tablet 2023 024 [facility] [address] [place] [address], [address], 13:52:19 Patient TargetsNo targets recorded. Patient Instructions Encounter Date Encounter Id Patient Instructions Last Modified By Organization Details Last Modified Time 02/06/2024 [id number] ankle sprain: care instructions [email or web address] Not available 02/06/2024 14:43:02 ankle sprain: rehab exercises [id number] Not available 02/06/2024 14:43:01 learning about rice (rest, ice, compression, and elevation) [id number] Not available 02/06/2024 14:43:02 See printed instructions. Follow-up with your doctor if no improvement in 1 week. Seek Emergency Medical evaluation for any worsening symptoms. [email or web address] Not available 02/06/2024 14:42:40 Reason for Referral None Reported. Results Created Date Observation Date Name Description Value Unit Range Abnormal Flag Note LastModifiedBy Organization Detail LastModifiedTime 02/06/2002/06/2024 XR, ankle , 3 or more view No observ ation record ed. [email or web address] [address] [place], [address], 02/07/2024 18:55:53 Result Notes None recorded. Problems Name Problem SNOMED Code Status Onset Date Resolution Date Notes Provider Name and Address Organization Details Recorded Time Seasonal allergic rhinitis 231169181 Active 024 Tru Gracia, DO [address] [place] , [place], [address] [place] - [facility] 11:57:44 Contact dermatitis 93245659 Active Antonella O'Todd null, [place] - [facility] 13:54:03 Joint pain 77861146 Active Antonella O'Todd null, [place] - [facility] 4 13:54:28 Problem Notes None recorded. Procedures Surgical History None recorded. Imaging Results Imaging Date Name Status LastModified by Organiz ation Details LastModified Time 02/06/2024 XR, ankle, 3 or more view completed [email or web address] [address] [place], [address], 02/07/2024 18:55:53 Procedure Notes None recorded. Medical [...] Updated DateTime 4 175.26 cm 26.3 kg/m2 47914.4 4 g 97 % 97 % 67 /min 18 /min 98.5 [degF] 111 mm[Hg] 75 mm[Hg] Antonella Lacey [employer] [facility] [employer] [facility] 4 11:31:48 Date Recorded Body height Body mass index (BMI) Body weight Oxygen saturation Oxygen saturation in Arterial blood by Pulse oximetry Heart rate Body temperature Systolic blood pressure Diastolic blood pressure Provider Name and Address Organization Details Last Updated DateTime 4 175.26 cm 25.8 kg/m2 37587.6 6 g 97 % 97 % 68 [...] SNOMED-CT Code Diagnosis ICD10 Code Diagnosis Note [id number] [address] [address] 10/15/2018 08:17:03 10/15/2018 08:58:22 [id number] [place] [address] [address] 10/03/2023 11:19:39 10/03/2023 12:00:36 Seasonal allergic rhinitis 371497843 J30.2 See pcp in 3-4 days. Go to ER if anything worsens. Symptomati c treatment. NO ABX NEEDED. NO SINUS PAIN OR ANY OTHER WORRISOME SIGNS All of patients questions have been answered. Patient has understand ing and agreement of all of this. [id number] SANTINO RAGLAND MD [address] [address] 02/06/2024 13:28:13 02/06/2024 14:43:46 Injury of right ankle 1976650757 2092949 S99.911A Sprain of right ankle 11 11690037 8263542 S93.401A You can take Aleve as directed [...] Guarantor Name 10/03/2023 1 [place] [id number] Antoinette Chavarria [id number] 3800 Antoinette Chavarria 02/06/2024 1 [place] [id number] Antoinette Chavarria [id number] 3800 Antoinette Chavarria Notes Date Note Type [...] Tru Gracia DO [address] [place], [address], [place] - [facility] 10/03/2023 12:07:03 02/06/2024 text/html 28 y F c/o right ankle pain. She describes taking a step back when she fell and twisted her right ankle today. The ankle has swelled, is painful and she is unable to bear weight on it even while using a cane.. SANTINO RAGLAND MD [address] [place], [address], [place] - [facility] 02/06/2024 14:48:04 OBGyn Episode No OBEpisode recorded.
== END 2024-06-10 15:03 | disposition home or self-care (01) ==
LOC: HO.HWS 09:08
PROVIDERS: PCP Internal Medicine; Visit Provider Advanced Practice Midwife
DX: N83.299 Other ovarian cyst, unspecified side (principal); D21.9 Benign neoplasm of connective and other soft tissue, unspecified
CPT/HCPCS: 99213

== ENCOUNTER → 2024-06-10 09:08 | Outpatient (BNVA) | payer BC, SELFPAY | PROVIDERS: PCP Internal Medicine; Visit Provider Advanced Practice Midwife ==

== ENCOUNTER 2024-07-27 11:24 | Outpatient (REF) | payer BC, SELFPAY ==
--- NOTE | ~2024-07-27 | US_ITS ---
CLINICAL HISTORY: N83.299 - Other ovarian cyst, unspecified side US pelvis transabdominal and transvaginal Comparison: US/WV/SR - US PELVIC AND TRANSVAGINAL - 06/04/24 15:00 EST Findings: Transabdominal scanning performed for overall anatomy. Transvaginal scanning performed for additional detail. Anteverted uterus is 8.5 cm length. 0.6 x 0.5 x 0.7 cm submucosal fibroid within the anterior uterine body (previously 0.6 x 0.3 x 0.5 cm ). 0.7 x 0.4 x 0.8 cm intramural fibroid within the right uterine body (previously 0.4 x 0.4 x 0.6 cm). 1.5 x 1.2 x 1.3 cm subserosal fibroid within the left lateral uterine body (previously 1.7 x 1.6 x 1.7 cm ). 0.5 x 0.4 x 0.5 cm submucosal fibroid within the anterior uterine body (previously 0.7 x 0.8 x 0.7 cm ). 1.1 x 0.9 x 1.2 cm subserosal fibroid within the left side of the uterine body (previously 1.1 x 1.0 x 1.1 cm ). Endometrium 10 mm thickness. There is trace endometrial fluid. Right ovary 3.4 x 1.8 x 3.1 cm. 1.4 x 1.4 x 1.2 cm hypoechoic nodule within the right ovary, similar to the prior study. Left ovary 2.2 x 1.5 x 1.8 cm. 1.3 x 0.8 x 1.2 cm mildly complex nodule within the left ovary, likely a hemorrhagic physiologic cyst. Normal color Doppler of both ovaries. Trace free fluid within the cul-de-sac. IMPRESSION: 1. Multiple uterine fibroids, similar to the prior study. 2. Trace endometrial fluid. 3. Small benign-appearing complex cyst or solid nodule within the right ovary, similar to the prior study. This document has been electronically signed by: Laila Stanton MD on 07/28/2024 14:48:00
--- OUTSIDE RECORDS SUMMARY | 2024-07-27 13:27 | XMS_ITS | Encounter Summary ---
Author Organization [facility] Address [address] [place] [address] Care Team Providers Care Channel Account Manager Name Role Phone Dwaine Buitrago MD Primary Care Provider Unava ilable Encounter Details Date Type Department Care Team Description 01/16/2019 Release of Information Medical Records [address] [place] [id number] Abstract, Provider Social History Tobacco Use Types Packs/Day Years Used Date Smoking Tobacco: Former Smokeless Tobacco: Never Comments:5 yrs ago quit Alcohol Use Standard Drinks/Week Comments Yes 0 (1 standard drink = 0.6 oz pur e alcohol) rare Sex Assigned at Date Recorded Not on file documented as of this encounter Plan of Treatment Not on file documented as of this encounter Visit Diagnoses Not on filedocumented in this encounter Care Teams Channel Account Manager Relationship Specialty Start Date End Date Dwaine Buitrago MD PCP - General Internal Medicine 12/05/18 documented as of this encounter
--- OUTSIDE RECORDS SUMMARY | 2024-07-27 13:27 | XMS_ITS | Clinical Summary ---
Author Organization [facility] Address [address] [place] [address] Care Team Providers Care Educational Assistant Name Role Phone Gilberto Regan MD Primary Care Provider [phone]- [phone] Thomas Aly PA-C Unavailable + [phone] Allergies Active Allergy Reactions Criticality Noted Date Comments Cinnamon Unknown/Patient and Family Unable to Define Medium 02/05/2019 [place] Unknown/Patient and Family Unable to Define Medium [...] Type Department Care Team Description 04/30/2024 Refill [facility] Heart & Vascular [place] at [facility] - Cardiology [address] [place] [phone] Thomas Aly PA-C from Last 3 Months [...] age to complete this topic Care Teams Educational Assistant Relationship Specialty Start Date End Date Gilberto Regan MD [address] [facility] [address] [place] [address] PCP - General 05/20/23 Thomas Aly PA-C [address] [place] [address] Physician Oil Operator Cardiac Electrophysiology 09/27/23
--- OUTSIDE RECORDS SUMMARY | 2024-07-27 13:27 | XMS_ITS | Clinical Summary ---
Author Organization [facility] Address [address] [place] [address] Care Team Providers Care [facility] Name Role Phone Dwaine Buitrago MD Primary Care Provider Monty ilable Allergies Active Allergy Reactions Severity Noted Date Comments Cinnamon 02/05/2019 [place] 02/05/2019 Nickel 02/05/2019 Medications Medication Sig Dispensed [...] Father Hypertension, Hyperlipidemia CAD Maternal Grandfather s/p IN x2 Diabetes Maternal Grandmother Hyperte nsion Diabetes [...] PATIENTS (#1) 02/19/2003 CERVICAL CANCER SCREENING 02/19/2005 CHOLESTEROL SCREENING 02/06/2024 02/05/2019 BASELINE HEALTH EXAM 40-64 2024 02/05/2019, MAMMOGRAM 2024 BMI CHECK/ADVISE 04/15/2024 02/05/2019, 01/13/2019 INFLUENZA (Season Ended) 2024 019, 12/14/2018 (External Completion of Vaccination per patient) Care Teams [facility] Relationship Specialty Start Date End Date Dwaine Buitrago MD PCP - General Internal Medicine 12/05/18
--- OUTSIDE RECORDS SUMMARY | 2024-07-27 13:27 | XMS_ITS | Data Portability ---
Author Organization [facility], [address] Address [address] [place] [address] Assessment No assessment recorded. Plan of Treatment Reminders Order Date Submit Date Provider Last Modified By Organization Details Last Modified Time Details Appointments None recorded. Lab None recorded. Referral None recorded. Procedures None recorded. Surgeries None recorded. Imaging XR, ankle, 3 or more view 2023 024 [email or web address], [address] [place] [address], [address], 15:43:16 Medication Orders montelukast 10 mg tablet 2023 024 [facility], [address] [place] [address], [address], 13:51:59 prednisone 50 mg tablet 2023 024 [facility] [address] [place] [address], [address], 13:52:19 Patient TargetsNo targets recorded. Patient Instructions Encounter Date Encounter Id Patient Instructions Last Modified By Organization Details Last Modified Time 02/06/2024 [id number] ankle sprain: care instructions [id number] Not available 02/06/2024 14:43:02 ankle sprain: rehab exercises [id number] Not available 02/06/2024 14:43:01 learning about rice (rest, ice, compression, and elevation) [id number] Not available 02/06/2024 14:43:02 See printed instructions. Follow-up with your doctor if no improvement in 1 week. Seek Emergency Medical evaluation for any worsening symptoms. [email or web address] Not available 02/06/2024 14:42:40 Reason for Referral None Reported. Results Created Date Observation Date Name Description Value Unit Range Abnormal Flag Note LastModifiedBy Organization Detail LastModifiedTime 02/06/2002/06/2024 XR, ankle , 3 or more view No observ ation record ed. [email or web address] [address] [place], [address], 02/07/2024 18:55:53 Result Notes None recorded. Problems Name Problem SNOMED Code Status Onset Date Resolution Date Notes Provider Name and Address Organization Details Recorded Time Seasonal allergic rhinitis 017297229 Active 024 Tru Gracia, DO [address] [place] , [place], [address] [facility] - [facility] 11:57:44 Contact dermatitis 09557360 Active Antonella O'Todd null, [place] - [facility] 13:54:03 Joint pain 89621050 Active Antonella O'Todd null, PA - [facility] 4 13:54:28 Problem Notes None recorded. Procedures Surgical History None recorded. Imaging Results Imaging Date Name Status LastModified by Organiz ation Details LastModified Time 02/06/2024 XR, ankle, 3 or more view completed [email or web address] [address] [place], [address], 02/07/2024 18:55:53 Procedure Notes None recorded. Medical [...] Updated DateTime 4 175.26 cm 26.3 kg/m2 53783.4 4 g 97 % 97 % 67 /min 18 /min 98.5 [degF] 111 mm[Hg] 75 mm[Hg] Antonella Lacey [facility] 4 11:31:48 Date Recorded Body height Body mass index (BMI) Body weight Oxygen saturation Oxygen saturation in Arterial blood by Pulse oximetry Heart rate Body temperature Systolic blood pressure Diastolic blood pressure Provider Name and Address Organization Details Last Updated DateTime 4 175.26 cm 25.8 kg/m2 87045.6 6 g 97 % 97 % 68 [...] SNOMED-CT Code Diagnosis ICD10 Code Diagnosis Note [id number] [address] [address] 10/15/2018 08:17:03 10/15/2018 08:58:22 [id number] Tru Gracia DO [address] [address] 10/03/2023 11:19:39 10/03/2023 12:00:36 Seasonal allergic rhinitis 421119027 J30.2 See pcp in 3-4 days. Go to ER if anything worsens. Symptomati c treatment. NO ABX NEEDED. NO SINUS PAIN OR ANY OTHER WORRISOME SIGNS All of patients questions have been answered. Patient has understand ing and agreement of all of this. [id number] SANTINO RAGLAND MD [address] [address] 02/06/2024 13:28:13 02/06/2024 14:43:46 Injury of right ankle 2459659560 5875896 S99.911A Sprain of right ankle 11 13917977 0716495 S93.401A You can take Aleve as directed [...] Guarantor Name 10/03/2023 1 [place] [id number] Antoinette Chavarria [id number] Antoinette Chaavrria 02/06/2024 1 [place] [id number] Antoinette Chavarria [id number] Antoinette Chavarria Notes Date Note Type [...] Tru Gracia DO [address] [place], [address], [place] - [facility] 10/03/2023 12:07:03 02/06/2024 text/html 28 y F c/o right ankle pain. She describes taking a step back when she fell and twisted her right ankle today. The ankle has swelled, is painful and she is unable to bear weight on it even while using a cane.. SANTINO RAGLAND MD [address] [place], [address], [place] - [facility] 02/06/2024 14:48:04 OBGyn Episode No OBEpisode recorded.
--- OUTSIDE RECORDS SUMMARY | 2024-07-27 13:28 | XMS_ITS | Clinical Summary ---
[facility] Address [address] [place] [address] Care Team Providers Care Production Aide Name Role Phone Yesenia Cerda MD Primary Care Prov ider Allergies Active Allergy Reactions Criticality Noted Date Comments Cinnamon 02/05/2019 [place] 02/05/2019 Nickel 02/05/2019 Medications albuterol HFA (ProAir HFA) 90 mcg/actuation inhaler 10/15/2018 Active meloxicam (MOBIC) 15 mg tablet Take 1 Tab by mouth daily. 03/03/2019 Active methocarbamoL (ROBAXIN) 750 mg tablet Take 1 Tab by mouth 3 times daily as needed for Other (muscle spasm (will cause sedation)). 03/03/2019 Active traMADoL (ULTRAM) 50 mg tablet Take 1 Tab by mouth 2 times daily as needed for Pain. 02/05/2019 Active Active Problems Problem Noted Date Diagnosed Date Eczema 06/19/2024 Overview (06/19/2024): DX:Eczema Fibromyalgia 06/19/2024 Overview (06/19/2024): DX:Fibromyalgia Obesity (BMI 30.0-34.9) 02/05/2019 Chronic back pain 01/27/2019 Overview (06/19/2024): DX:Chronic back pain Depression 01/27/2019 Overview (06/19/2024): DX:Depression Polycystic kidney 01/27/2019 Overview (06/19/2024): DX:Polycystic kidney POTS (postural orthostatic tachycardia syndrome) 01/27/2019 Overview (06/19/2024): DX:POTS (postural orthostatic tachycardia syndrome) Immunizations Name Administration Dates Next Due Influenza, Unspecified 12/14/2018 Surgical History Surgery Date Site/Laterality Comments WISDOM TOOTH EXTRACTION PROCEDURE: HISTORICAL WISDOM TEETH EXTRACTION Medical History Medical History Date Comments Fibromyalgia 06/19/2024 DX:Fibromyalgia Environmental allergies DX:Envir onmental allergies Eczema 06/19/2024 DX:Eczema Asthma DX:Asthma Depression 01/27/2019 DX:Depression Polycystic kidney 01/27/2019 DX:Polycystic kidney POTS (postural orthostatic t achycardia syndrome) 01/27/2019 DX:POTS (postural orthostati c tachycardia syndrome) Chronic back pain 01/27/2019 DX:Chronic brian k pain Family History Medical History Relation Name Comments Diabetes Brother Hypertension Throat cancer Father Hypertension, Hyperlipidemia Coronary artery disease Maternal Grandfather s/p IN x2 Diabetes Maternal Grandmother Hyperte nsion Diabetes Mother Hypertension, H yperlipidemia No Known Problems Paternal Grandfather No Known Problems Paternal Grandmother Relation Name Status Comments Brother Alive Father Maternal Grandfather Maternal Grandmother Mother Alive Paternal Grandfather Paternal Grandmother Social History Tobacco Use Types Packs/Day Years Used Date Smoking Tobacco: Former Smokeless Tobacco: Never Alcohol Use Standard Drinks/Week Comments Yes 0 (1 standard drink = 0.6 oz pur e alcohol) Comments Unknown Sex and Gender Information Value Date Recorded Sex Assigned at Not on file Legal Sex Female 11:57 AM EST Gender Identity Not on file Sexual Orientation Not on file Obstetrics History Plan of Treatment Upcoming Encounters Date Type Department Care Team (Late st Contact Info) Description 09/28/2024 3:00 PM EDT Office Visit Adult Medicine [facility] [address] [place] [address] Yesenia Cerda MD [address] [place] [address] Health Maintenance Due Date Last Done Comments Breast Cancer Screening 1984 DTaP,Tdap,and Td Vaccines (1 - Tdap) 02/19/2003 Hepatitis B Vaccines (1 of 3 - 19+ 3-dose series) 02/19/2003 Cervical Cancer Screening: P ap Smear 02/19/2005 COVID-19 Vaccine (2023-2 5 season) 2023 Depression Screening 06/19/2024 HIV Screening 06/19/2024 Hepatitis C Screening 06/19/2024 Social Influencers of Health Screening 06/19/2024 Influenza Vaccine (Season Ended) 2024 12/15/19 19 HIB Vaccines Aged Out No longer eligi ble based on patient's age to complete this topic HPV Vaccines Aged Out No longer eligi ble based on patient's age to complete this topic Hepatitis A Vaccines Aged Out No long er eligible based on patient's age to complete this topic IPV Vaccines Aged Out No longer eligi ble based on patient's age to complete this topic MMR Vaccines Aged Out No longer eligi ble based on patient's age to complete this topic Meningococcal ACWY Vaccine Aged Out N o longer eligible based on patient's age to complete this topic Meningococcal B Vaccine Aged Out No l onger eligible based on patient's age to complete this topic Pneumococcal Vaccine: Pediat rics (0 to 5 Years) and At-Risk Patients (6 to 64 Years) Aged Out No longer eligi ble based on patient's age to complete this topic RSV Immunization Patients Un pedro 20 months Aged Out No longer eligible b ased on patient's age to complete this topic Varicella Vaccines Aged Out No longer eligible based on patient's age to complete this topic Insurance [facility] Care Teams Production Aide Relationship Specialty Start Date End Date Yesenia Cerda MD [address] [place] [id number] PCP - General Internal Medicine 06/18/24
== END 2024-07-27 11:25 | disposition home or self-care (01) ==
LOC: HO.US 11:24
PROVIDERS: PCP Internal Medicine; Visit Provider Advanced Practice Midwife
DX: N83.299 Other ovarian cyst, unspecified side (principal); D21.9 Benign neoplasm of connective and other soft tissue, unspecified
CPT/HCPCS: 76830; 76856

== ENCOUNTER → 2024-07-27 11:26 | Outpatient (BNV) | payer BC, SELFPAY | PROVIDERS: PCP Internal Medicine; Visit Provider Radiology Diagnostic Radiology | DX: N83.292 Other ovarian cyst, left side (principal); D25.9 Leiomyoma of uterus, unspecified | CPT/HCPCS: 76830; 76856 ==

== ENCOUNTER 2024-09-08 15:41 | Outpatient (AMB) | payer BC, SELFPAY ==
--- NOTE | 2024-09-08 15:50 | A.OFFVIS_ITS ---
Intake Visit Reasons: Ultrasound follow up Narcotics And/Or Vice Detective: Narcotics And/Or Vice Detective Present Allergies cinnamon [CINNAMON] Allergy (Intermediate, Verified 09/08/24 15:50) HIVES [place] And Derivatives [CITRUS] Allergy (Intermediate, Verified 09/08/24 15:50) HIVES pineapple [PINEAPPLE] Allergy (Unknown, Verified 09/08/24 15:50) SWELLING OxyContin Allergy (Unknown, Uncoded 09/17/23 09:38) Unknown Seasonal IC Allergy (Unknown, Uncoded 09/17/23 09:38) Itchy Eyes Is last menstrual period known: Yes HPI Comments Details: Patient is here today for a follow up pelvic ultrasound. History of multiple fibroids, and bilateral complex ovarian cyst. She reports having pelvic pain randomly in no consistent area. 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 She reports seeing her PCP for her kidney functions in the levels were normal. She had seen [place] [facility] in the past for hematuria. 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 Female Reproductive History Menstrual Age of Menarche: 10 Review of Systems Const All systems reviewed & are unremarkable except as noted in HPI and below Endo Reports no additional complaints Physical Exam Const General: cooperative, healthy appearing and no acute distress Psych Appearance: well kempt Attitude: cooperative Thought process: Normal thought process present Results Reviewed Results Reviewed: [address] [address] Ultrasound Report Signed Patient: Antoinette Chavarria MR#: [id number] : 1985 Acct:[id number] Age/Sex: 39 / F ADM Date: 07/27/24 Loc: HO.US Attending Dr: Marisa Finney CNM Ordering Physician: Marisa Finney CNM Date of Service: 07/27/24 Procedure(s): US pelvic and transvaginal Accession Number(s): [id number] cc: Jyotsna Regan MD; Marisa Finney CNM~ CLINICAL HISTORY: N83.299 - Other ovarian cyst, unspecified side US pelvis transabdominal and transvaginal Comparison: US/GA/SR - US PELVIC AND TRANSVAGINAL - 06/04/24 15:00 EST Findings: Transabdominal scanning performed for overall anatomy. Transvaginal scanning performed for additional detail. Anteverted uterus is 8.5 cm length. 0.6 x 0.5 x 0.7 cm submucosal fibroid within the anterior uterine body (previously 0.6 x 0.3 x 0.5 cm ). 0.7 x 0.4 x 0.8 cm intramural fibroid within the right uterine body (previously 0.4 x 0.4 x 0.6 cm). 1.5 x 1.2 x 1.3 cm subserosal fibroid within the left lateral uterine body (previously 1.7 x 1.6 x 1.7 cm ). 0.5 x 0.4 x 0.5 cm submucosal fibroid within the anterior uterine body (previously 0.7 x 0.8 x 0.7 cm ). 1.1 x 0.9 x 1.2 cm subserosal fibroid within the left side of the uterine body (previously 1.1 x 1.0 x 1.1 cm ). Endometrium 10 mm thickness. There is trace endometrial fluid. Right ovary 3.4 x 1.8 x 3.1 cm. 1.4 x 1.4 x 1.2 cm hypoechoic nodule within the right ovary, similar to the prior study. Left ovary 2.2 x 1.5 x 1.8 cm. 1.3 x 0.8 x 1.2 cm mildly complex nodule within the left ovary, likely a hemorrhagic physiologic cyst. Normal color Doppler of both ovaries. Trace free fluid within the cul-de-sac. IMPRESSION: 1. Multiple uterine fibroids, similar to the prior study. 2. Trace endometrial fluid. 3. Small benign-appearing complex cyst or solid nodule within the right ovary, similar to the prior study. This document has been electronically signed by: Laila Stanton MD on 07/28/2024 14:48:00 Dictated By: Laila Stanton MD Signed By: <Electronically signed by Laila Stanton MD in OV> 07/28/24 1448 DD/ 47 TD/TT: 07/28/241447 Barrel Handler: Assessment & Plan Assessment & Plan (1) Complex ovarian cyst: Code(s): N83.299 - Other ovarian cyst, unspecified side Category: Medical Plan Discussed: Ultrasound findings, see report. Multiple fibroids, bilateral complex ovarian cyst/nodules. Counseled regarding findings of: Complex ovarian cyst, which is often benign, and most resolve on their own overtime. Some develop into premalignant or malignant tumors. Limitations of testing for diagnostic purposes. Further monitoring and evaluation is recommended with US, possible CT, or MRI study. If persists, or is indicated (Ca-125, Carbohydrate Antigen 19-9, & Carcinoembryonic Antigen) labs will be ordered and referral to [facility] or general gynecology for MD care if indicated for possible surgical consult. Follow up in person for test results. Plan MRI. Follow up pending results. This note is constructed using voice recognition software. While every effort has been made to ensure accuracy, shale miner errors may have been included. Counseled re: Leiomyoma: common pelvic neoplasm. Differential diagnosis-may include but not limited to- leiomyosarcoma which is a rare uterine sarcoma 3- 7/100,000, difficult to distinguish from fibroids on ultrasound from uterine sarcoma's. Unlikely any single test will have a highly positive predictive value. Hysterectomy is not recommended for sole purpose of excluding malignant neoplasm. Consult for surgical exploration, medical treatment, other treatments, verses expectant management, pros and cons, risks and benefits. Referral to MD if indicated for level of care if indicated Report any AUB, pelvic pressure, bloating, or pain. The patient expressed understanding and agreement with the plan of care. All of her questions and concerns were addressed to the best of my ability. This note is constructed using voice recognition software. While every effort has been made to ensure accuracy, shale miner errors may have been included. Orders: Orders MR pelvis wo/w con Today N83.299 - Other ovarian cyst, unspecified side Coding Level of Care Code Est Pt Level 3 (12572) Diagnoses Complex ovarian cyst N83.299
== END 2024-09-08 16:27 | disposition home or self-care (01) ==
LOC: HO.HWS 15:41
PROVIDERS: PCP Internal Medicine; Visit Provider Advanced Practice Midwife
DX: N83.299 Other ovarian cyst, unspecified side (principal)
CPT/HCPCS: 99213

== ENCOUNTER → 2024-09-08 15:41 | Outpatient (BNVA) | payer BC, SELFPAY | PROVIDERS: PCP Internal Medicine; Visit Provider Advanced Practice Midwife ==

== ENCOUNTER → 2024-10-15 08:19 | Outpatient (BNV) | payer BC, SELFPAY | PROVIDERS: PCP Internal Medicine; Visit Provider Radiology Diagnostic Radiology | DX: D25.9 Leiomyoma of uterus, unspecified (principal) | CPT/HCPCS: 72197 ==

== ENCOUNTER 2024-10-15 08:33 | Outpatient (REF) | payer BC, SELFPAY ==
--- NOTE | ~2024-10-15 | MR_ITS ---
EXAMINATION: MR PELVIS WITHOUT THEN WITH IV CONTRAST HISTORY: N83.299 - Other ovarian cyst, unspecified side. TECHNIQUE: Axial T1, T2, fat-suppressed T2, fat-suppressed T1, and sagittal and coronal T2-weighted MR images of the pelvis were obtained. Subsequently, axial and sagittal fat-suppressed T1-weighted images were obtained after the intravenous administration of 9 mL Gadavist. COMPARISON: Correlation is made with a pelvic ultrasound dated 07/27/2024. FINDINGS: The uterus measures approximately 9.4 x 4.5 x 5.8 cm. The junctional zone is not thickened. There is an anterior fibroid on the left measuring 1.0 cm and subcutaneous serosal fibroid at the left fundus measuring 1.5 cm. The endometrium is unremarkable. There are nabothian cysts in the cervix. The cervix is otherwise unremarkable. The right ovary measures approximately 3.6 x 2.1 x 2.1 cm and demonstrates multiple follicles. The left ovary measures approximately 2.9 x 1.5 x 1.9 cm and demonstrates multiple follicles. There is no ascites or pelvic lymphadenopathy. The visualized bones demonstrate normal marrow signal intensity. MR/MR pelvis wo/w con IMPRESSION: Uterine fibroids as described. No ovarian abnormality is seen. Follow-up of the previously seen left ovarian abnormality should be performed with ultrasound. Electronically signed by: Bobo Singh MD 10/15/2024 11:18 AM EDT
--- OUTSIDE RECORDS SUMMARY | 2024-10-15 08:42 | XMS_ITS ---
Author Name [facility] Organization Unknown History of Medication Use Medication Directions Dispensed Refills Start Date End Date Stat us traMADol (ULTRAM) 50 MG tablet Take 1 tablet (50 mg total) by mouth 4 times daily (every 6 hours) as needed. for pain 06/02/2023 active dupilumab (Dupixent) 300 MG/2ML pen injector Inject under the skin once. active Allergies Allergen Reaction Severity Comment Documented Date Source Statu s NICKEL UNKNOWN/PATIENT AND FAMILY UNABLE TO DEFINE 02/05/2019 [facility] active CINNAMON UNKNOWN/PATIENT AND FAMILY UNABLE TO DEFINE [facility] CITRUS UNKNOWN/PATIENT AND FAMILY UNABLE TO DEFINE [facility] Problems Problem Status Onset Date Problem Type Date of Resoluti on Source Heart palpitations active EncounterDiagnosisAct [facility] Encounters Encounter Type Encounter Reason Primary Diagnosis Location Date Ambulatory [facility] 11/08/2023 Ambulatory [facility] 09/27/2023 Ambulatory Dizziness and giddiness Dizziness and giddiness [facility] 09/04/2023 Ambulatory Other abnormalities of heart beat Other abnormalities of heart beat [facility] 07/02/2023 Ambulatory Other abnormalities of heart beat Other abnormalities of heart beat [facility] 07/02/2023 Care Team Organization Name Specialty Phone Email Start Date End Da te [facility] 07/02/2023 [facility] 05/20/2023
--- OUTSIDE RECORDS SUMMARY | 2024-10-15 08:42 | XMS_ITS | Clinical Summary ---
Author Organization [facility] [address] [address] Address [address] [place] [address] Phone Care Team Providers Care Manager Traffic Name Role Phone Yesenia Cerda MD Primary Care Prov ider Allergies Active Allergy Reactions Criticality Noted Date Comments Cinnamon 02/05/2019 [place] Derived 02/05/2019 Nickel 02/05/2019 Medications albuterol HFA (ProAir HFA) 90 mcg/actuation inhaler 9 Active traMADoL (ULTRAM) 50 mg tablet Take 1 Tab by mouth 2 times daily as needed for Pain. 9 Active dupilumab (Dupixent Pen) 300 mg/2 mL pen Inject under the skin. Active sodium chloride 1,000 mg soluble tablet Take 1 tablet (1 g total) by mouth 2 (two) times a day. Active meloxicam (MOBIC) 15 mg tablet Take 1 Tab by mouth daily. 9 09/29/19 25 Discontinu ed(Therapy completed) methocarbamoL (ROBAXIN) 750 mg tablet Take 1 Tab by mouth 3 times daily as needed for Other (muscle spasm (will cause sedation)). 9 09/29/19 25 Discontinu ed(Therapy completed) Active Problems Problem Noted Date Diagnosed Date Eczema 06/19/2024 Overview (06/19/2024): DX:Eczema Fibromyalgia 06/19/2024 Overview (06/19/2024): DX:Fibromyalgia Obesity (BMI 30.0-34.9) 02/05/2019 Chronic back pain 01/27/2019 Overview (06/19/2024): DX:Chronic back pain Depression 01/27/2019 Overview (06/19/2024): DX:Depression Polycystic kidney 01/27/2019 Overview (06/19/2024): DX:Polycystic kidney POTS (postural orthostatic tachycardia syndrome) 01/27/2019 Overview (06/19/2024): DX:POTS (postural orthostatic tachycardia syndrome) Encounters Date Type Department Care Team Description 09/28/2024 3:00 PM EDT Office Visit Adult [address] [address] Yesenia Powell MD Routine general medical examination at a health care facility (Primary Dx); POTS (postural orthostatic tachycardia syndrome); Eczema, unspecified type; Sjogren syndrome with glomerular disease ([facility] V24); Pelvic pain; Type 2 diabetes mellitus without complication, without long-term current use of insulin (CMS/HCC V24, CMS/HCC V28); At risk for infection from Last 3 Months Immunizations Name Administration Dates Next Due Influenza Quadravalent, MDCK , 0.5ml, preservative free (Flucelvax) 6mo and older 01/06/2019 Influenza Quadrivalent, 0.5m l, preservative free (Fluarix; FluLaval; Fluzone) ages 6mo and older (Afluria) 3yo and older 03/01/2023,01/01/2020 Influenza, Unspecified 12/14/2018 Surgical History Surgery Date [...] Hyperlipidemia Coronary artery disease Maternal Grandfather s/p SC x2 Diabetes Maternal Grandmother Hyperte nsion Diabetes [...] = 0.6 oz pur e alcohol) Comments No Sex and Gender Information Value Date Recorded Sex Assigned at Not on file Legal Sex Female 11:57 AM EST Gender Identity Not on file Sexual Orientation Not on file Obstetrics History Last Filed Vital Signs Vital Sign Reading Time Taken Comments Blood Pressure 101/64 09/28/2024 3:10 PM EDT Pulse 64 09/28/2024 3:10 PM EDT Temperature 36.9 C (98.4 F) 09/28/2024 3:10 PM EDT Respiratory Rate - - Oxygen Saturation - - Inhaled Oxygen Concentration - - Weight 86.8 kg (191 lb 6.4 oz) 09/28/2024 3:10 P M EDT Height 172.7 cm (5' 8 ) 09/28/2024 3:10 PM EDT Body Mass Index 29.1 09/28/2024 3:10 PM EDT Plan of Treatment Upcoming Encounters Date Type Department Care Team (Late st Contact Info) Description 03/30/2025 3:45 PM EST Office Visit Adult Medicine - [address] [address] Yesenia Cerda MD [address] [place] [address] Health Maintenance Due Date Last Done Comments Diabetes: Annual Foot Exam 02/19/1994 Diabetes: Annual Retina Eye Exam 02/19/1994 Pneumococcal Vaccine: Pediatrics (0 to 5 Years) and At-Risk Patients (6 to 64 Years) (1 of 2 - PCV) 02/19/2003 Diabetes: Annual GFR (Glomerular Filtration Rate) 02/06/2020 02/05/2019 Cholesterol Screening (Lipid Panel) 06/19/2024 02/05/2019 Diabetes: Annual Urine Albumin-Creatinine Ratio (uACR) 09/29/2024 Diabetes: Blood Sugar Control Test (HGBA1C) 09/29/2024 Influenza Vaccine (Season Ended) 2024 03/01/2023, 01/01/2020, 01/06/2019, Additional history exists COVID-19 Vaccine ( season) 2025 03/01/2023, 08/11/2020, 07/21/2020 Postponed from 12/15/2023 (Not clinically appropriate to address at this time) DTaP,Tdap,and Td Vaccines (1 - Tdap) 04/15/2025 Postponed from 02/19/2003 (Not clinically appropriate to address at this time) Hepatitis B Vaccines (1 of 3 - 19+ 3-dose series) 04/15/2025 Postponed from 02/19/2003 (Not clinically appropriate to address at this time) Depression Screening 09/28/2025 09/28/2024 Breast Cancer Screening 02/27/2026 02/28/2024 Cervical Cancer Screening: Pap Smear 09/14/2027 09/13/2024 HIB Vaccines Aged Out No longer eligi ble based on patient's age to complete this topic HIV Screening Discontinued HPV Vaccines Aged Out No longer eligi ble based on patient's age to complete this topic Hepatitis A Vaccines Aged Out No long er eligible based on patient's age to complete this topic Hepatitis C Screening Discontinued IPV Vaccines Aged Out No longer eligi [...] to complete this topic RSV Immunization Patients Under 20 months Aged Out No longer eligible based on patient's age to complete this topic Social Influencers of Health Screening Discontinued Varicella Vaccines Aged Out No longer eligible based on patient's age to complete this topic Procedures Procedure Name Priority Date/Time Associated Diagnosis Comments ANNUAL BMP BLOOD TEST Routine 02/05/2019 LIPID PANEL Routine 02/05/2019 from Last 3 Months or Most Recently Relevant to Health Maintenance Results * Annual BMP Blood Test (02/05/2019) Annual BMP Blood Test Abstracted Historical Provider HEALTH MAINTENANCE Final Result * (ABNORMAL) Lipid panel (02/05/2019) LDL/HDL Ratio 3 0 - 4 Triglycerides 109 0 - 150 mg/dL Cholesterol 185 0 - 200 mg/dL HDL 57 >=40 mg/dL LDL Cholesterol 107(A) 0 - 100 mg/dL Blood Venous blood specimen / Unknown us Historical Provider LAB BLOOD ORDERABLES Trinity l Result from Last 3 Months or Most Recently Relevant to Health Maintenance Insurance [facility] Care Teams Manager Traffic Relationship Specialty Start Date End Date Yesenia Cerda MD [address] [place] [phone] PCP - General Internal Medicine 06/18/24
--- OUTSIDE RECORDS SUMMARY | 2024-10-15 08:42 | XMS_ITS | Clinical Summary ---
Author Organization [facility] Address [address] [place] [address] Care Team Providers Care Control Tower Radio Operator Name Role Phone iGlberto Regan MD Primary Care Provider [phone] Thomas Aly PA-C Unavailable [phone] Allergies Active Allergy Reactions Criticality Noted Date Comments Cinnamon Unknown/Patient and Family Unable to Define Medium 02/05/2019 [place] Unknown/Patient and Family Unable to Define Medium 02/05/2019 Nickel Unknown/Patient and Family Unable to Define Medium 02/05/2019 Medications traMADol (ULTRAM) 50 MG tablet Take 1 tablet (50 mg total) by mouth 4 times daily (every 6 hours) as needed. for pain 06/02/2023 Active dupilumab (Dupixent) 300 MG/2ML pen injector Inject under the skin once. Active sodium chloride 1 g tabletIndications :Heart palpitations Take 1 tablet (1 g total) by mouth 2 times a day. 180 tablet 1 04/30/2024 Active Social History Tobacco Use Types Packs/Day Years Used Date Smoking Tobacco: Never Assessed Comments Unknown Sex and Gender Information Value Date Recorded Sex Assigned at Female 05/20/2023 11:15 AM EST Legal Sex Female 2:44 PM EST Gender Identity Female 05/20/2023 11:15 AM [...] PCV) 02/19/2003 Pap Smear (Ages 21-65) 02/19/2005 Mammogram 2024 Influenza Vaccine 11/13/2024 HPV Vaccines Aged Out No longer eligi ble based on patient's age to complete this topic Insurance [facility] - PPO Care Teams Control Tower Radio Operator Relationship Specialty Start Date End Date Gilberto Regan MD [address] [facility] [address] [place] [address] PCP - General 05/20/23 Thomas Aly PA-C [address] [place] [address] Physician Personnel Monitor Cardiac Electrophysiology 09/27/23
--- OUTSIDE RECORDS SUMMARY | 2024-10-15 08:42 | XMS_ITS | Data Portability ---
Author Organization [facility], [address] Address [address] [place] [address] Assessment No assessment recorded. Plan of Treatment Reminders Order Date Submit Date Provider Last Modified By Organization Details Last Modified Time Details Appointments None recorded. Lab None recorded. Referral None recorded. Procedures None recorded. Surgeries None recorded. Imaging XR, ankle, 3 or more view 2023 024 [facility], [address] [place] [address], [address], 15:43:16 Medication Orders montelukast 10 mg tablet 2023 024 [facility], [address] [place] [address], [address], 13:51:59 prednisone 50 mg tablet 2023 024 [facility] [address] [place] [address], [address], 13:52:19 Patient TargetsNo targets recorded. Patient Instructions Encounter Date Encounter Id Patient Instructions Last Modified By Organization Details Last Modified Time 02/06/2024 [id number] ankle sprain: care instructions [email or web address] Not available 02/06/2024 14:43:02 ankle sprain: rehab exercises [email or web address] Not available 02/06/2024 14:43:01 learning about rice (rest, ice, compression, and elevation) [email or web address] Not available 02/06/2024 14:43:02 See printed instructions. Follow-up with your doctor if no improvement in 1 week. Seek Emergency Medical evaluation for any worsening symptoms. [email or web address] Not available 02/06/2024 14:42:40 Reason for Referral None Reported. Results Created Date Observation Date Name Description Value Unit Range Abnormal Flag Note LastModifiedBy Organization Detail LastModifiedTime 02/06/2002/06/2024 XR, ankle , 3 or more view No observ ation record ed. [email or web address] [address] [place], [address], 02/07/2024 18:55:53 Result Notes None recorded. Problems Name Problem SNOMED Code Status Onset Date Resolution Date Notes Provider Name and Address Organization Details Recorded Time Seasonal allergic rhinitis 088620540 Active 024 Tru Gracia, DO [address] , [place], [address] [facility] PA - [facility] 4 11:57:44 Contact dermatitis 41861026 Active Antonella O'Todd null, PA - [facility] 4 13:54:03 Pain of joint 19488504 Active Antonella O'Todd null, [facility] - [facility] [...] Heart rate Respiratory rate Body temperature Systolic And Diastolic Provider Name and Address Organization Details Last Updated DateTime 4 175.26 cm 26.3 kg/m2 50999.4 4 g 97 % 97 % 67 /min 18 /min 98.5 [degF] 111/75 mm[Hg] Antonella OTabloTodd PA - [facility] 4 11:31:48 Date Recorded Body height Body mass index (BMI) Body weight Oxygen saturation Oxygen saturation in Arterial blood by Pulse oximetry Heart rate Body temperature Systolic And Diastolic Provider Name and Address Organization Details Last Updated DateTime 4 175.26 cm 25.8 kg/m2 42669.6 6 g 97 % 97 % 68 /min 98 [degF] 115/73 mm[Hg] Antonella QuinnSnapshot Interactiven PA - [facility] 4 13:51:05 Social History Question Answer Notes LastModified by Wayin Details LastModified Time Which Illicit Or Recreational Drugs Have You [...] Your Relationship Status? Information not available 10/03/2023 Have You Recently Traveled Abroad? No Information not available 10/03/2023 Are You Currently In School? No Information not available 10/03/2023 Sex: Unknown Functional Status Question Answer Note LastModified by Novast ion Details LastModified Time Do you use any illicit or recreational drugs? Yes Information not available 10/03/2023 Do you or have you ever used any other forms of tobacco or nicotine? No Information not available 10/03/2023 What is your level of alcohol consumption? Occasional Information not available 10/03/2023 Are you currently employed? Yes Information not available 10/03/2023 Mental Status None recorded. Family History Nothing Reported. Medical History No medical history recorded. Gynecological History Statement/Question Response Date of LMP 01/23/2024 LMP N/A Obstetrics History GPAL:G 0 P 0 0 0 0 Past Encounters Encounter ID Performer Location Encounter Start Date Encounter Closed Date Diagnosis/Indication Diagnosis SNOMED-CT Code Diagnosis ICD10 Code Diagnosis Note [id number] [facility] [address] [address] 10/15/2018 08:17:03 10/15/2018 08:58:22 [id number] Tru Gracia DO _[facility] [address] [address] 10/03/2023 11:19:39 10/03/2023 12:00:36 Seasonal allergic rhinitis 329557493 J30.2 See pcp in 3-4 days. Go to ER if anything worsens. Symptomati c treatment. NO ABX NEEDED. NO SINUS PAIN OR ANY OTHER WORRISOME SIGNS All of patients questions have been answered. Patient has understand ing and agreement of all of this. [id number] SANTINO RAGLAND MD _[facility] [address] [address] 02/06/2024 13:28:13 02/06/2024 14:43:46 Injury of right ankle 5291369307 5371667 S99.911A Sprain of right ankle 11 30957058 2146677 S93.401A You can take Aleve as directed on the packaging for pain management . You can take Tylenol in between doses of Aleve. Health Concerns Section Related Observation LastModified by Organization Abel ls LastModified Time None Recorded Concern Status LastModified by Organization Details LastModified Time None Recorded Advance Directives Directive None Recorded Payers Insurance Date Sequence Insurance Name Policy Number Policy Castellanos Covered Member ID Castellanos Member ID Guarantor Name 04/01/2024 1 SHAYY (PPO) [id number] Antoinette Chavarria [id number] Antoinette Chavarria 02/06/2024 1 [facility] [place] [place] [id number] Antoinette Chavarria [id number] Antoinette Chavarria Notes Date Note Type Note [...] Tru Gracia DO [address] [place], [address], [place] [facility] 10/03/2023 12:07:03 02/06/2024 text/html 28 y F c/o right ankle pain. She describes taking a step back when she fell and twisted her right ankle today. The ankle has swelled, is painful and she is unable to bear weight on it even while using a cane.. SANTINO RAGLAND MD [address] [place], [address], [place] [facility] 02/06/2024 14:48:04 OBGyn Episode No OBEpisode recorded.
== END 2024-10-15 08:34 | disposition home or self-care (01) ==
LOC: HO.MRI 08:33
PROVIDERS: PCP Internal Medicine; Visit Provider Advanced Practice Midwife
DX: N83.299 Other ovarian cyst, unspecified side (principal)
CPT/HCPCS: 72197; A9585

== ENCOUNTER 2024-11-19 12:35 | Outpatient (AMB) | payer BC, SELFPAY ==
--- NOTE | 2024-11-19 12:35 | MHC.OFFVIS ---
Intake Visit Reasons: Tv MRI Results Director Of Dementia Operations: Director Of Dementia Operations Present Allergies cinnamon (CINNAMON) Allergy (Intermediate, Verified 09/08/24 15:50) HIVES [place] And Derivatives (CITRUS) Allergy (Intermediate, Verified 09/08/24 15:50) HIVES pineapple (PINEAPPLE) Allergy (Unknown, Verified 09/08/24 15:50) SWELLING OxyContin Allergy (Unknown, Uncoded 09/17/23 09:38) Unknown Seasonal IC Allergy (Unknown, Uncoded 09/17/23 09:38) Itchy Eyes Is last menstrual period known: Yes HPI Comments Details: Tele Health Visit Total time I personally spent on visit and management today: 17 minutes. Time spent included review of pertinent office notes in the electronic health record; review of laboratory and imaging results; review of personal family medical history; discussing diagnosis and plan of care with the patient; documenting the encounter in the EMR. Patient presents to discuss: MRI results due to history of complex ovarian cyst, history of multiple fibroids. 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 Female Reproductive History Menstrual Age of Menarche: 10 Review of Systems Const All systems reviewed & are unremarkable except as noted in HPI and below Endo Reports no additional complaints Physical Exam Const General: cooperative, healthy appearing and no acute distress Psych Appearance: well kempt Attitude: cooperative Thought process: Normal thought process present Telehealth Telehealth Telehealth Platform: [employer] Location of provider rendering services: practice address Location of patient: address on file Patient Identification confirmed using: Name, : Yes Telehealth method: video Patient verbally consented to treatment: Yes Patient verbally consented to billing insurance company: Yes Patient informed of any privacy concerns related to visit: Yes Results Reviewed Results Reviewed: [address] [address] Magnetic Resonance Report Signed Patient: Antoinette Chavarria MR#: [id number] : 1985 Acct:[id number] Age/Sex: 39 / F ADM Date: 10/15/24 Loc: HO.MRI Attending Dr: Marisa Finney CNM Ordering Physician: Marisa Finney CNM Date of Service: 10/15/24 Procedure(s): MR pelvis wo/w con Accession Number(s): [id number] cc: Jyotsna Regan MD; Marisa Finney CNM~ EXAMINATION: MR PELVIS WITHOUT THEN WITH IV CONTRAST HISTORY: N83.299 - Other ovarian cyst, unspecified side. TECHNIQUE: Axial T1, T2, fat-suppressed T2, fat-suppressed T1, and sagittal and coronal T2-weighted MR images of the pelvis were obtained. Subsequently, axial and sagittal fat-suppressed T1-weighted images were obtained after the intravenous administration of 9 mL Gadavist. COMPARISON: Correlation is made with a pelvic ultrasound dated 07/27/2024. FINDINGS: The uterus measures approximately 9.4 x 4.5 x 5.8 cm. The junctional zone is not thickened. There is an anterior fibroid on the left measuring 1.0 cm and subcutaneous serosal fibroid at the left fundus measuring 1.5 cm. The endometrium is unremarkable. There are nabothian cysts in the cervix. The cervix is otherwise unremarkable. The right ovary measures approximately 3.6 x 2.1 x 2.1 cm and demonstrates multiple follicles. The left ovary measures approximately 2.9 x 1.5 x 1.9 cm and demonstrates multiple follicles. There is no ascites or pelvic lymphadenopathy. The visualized bones demonstrate normal marrow signal intensity. MR/MR pelvis wo/w con IMPRESSION: Uterine fibroids as described. No ovarian abnormality is seen. Follow-up of the previously seen left ovarian abnormality should be performed with ultrasound. 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 Differential diagnosis-may include but not limited to- leiomyosarcoma which is a rare uterine sarcoma 3-7/100,000, difficult to distinguish from fibroids on ultrasound from uterine sarcoma's. Unlikely any single test will have a highly positive predictive value. Hysterectomy is not recommended for sole purpose of excluding malignant neoplasm. Consult for surgical exploration, medical treatment, other treatments, verses expectant management, pros and cons, risks and benefits. Expectant management follow up in 6 months, then yearly for stability. Patient prefers to proceed with expectant management. Referral to MD if indicated for level of care if indicated Report any AUB, pelvic pressure, bloating, or pain. (2) Abnormal ultrasound of ovary: Code(s): R93.5 - Abnormal findings on diagnostic imaging of other abdominal regions, including retroperitoneum Plan Discussed ultrasound findings plan a follow up pelvic ultrasound to evaluate the ovarian nodule. US and follow up planned. The patient expressed understanding and agreement with the plan of care. All of her questions and concerns were addressed to the best of my ability. Orders: Orders US pelvic and transvaginal 01/04/25 D21.9 - Benign neoplasm of connective and other soft tissue, unspecified, R93.5 - Abnormal findings on diagnostic imaging of other abdominal regions, including retroperitoneum Coding Level of Care Code Tele Est Pt Level 3 (99022) Diagnoses Leiomyoma D21.9 Abnormal ultrasound of ovary R93.5
--- OUTSIDE RECORDS SUMMARY | 2024-11-19 12:39 | XMS_ITS | Clinical Summary ---
Author Organization [facility] Address [address] [place] [address] Care Team Providers Care Laminator Name Role Phone Dwaine Buitrago MD Primary Care Provider Monty ilable Allergies Active Allergy Reactions Severity Noted Date Comments Cinnamon 02/05/2019 Hyampom 02/05/2019 Nickel 02/05/2019 Medications Medication Sig Dispensed [...] Father Hypertension, Hyperlipidemia CAD Maternal Grandfather s/p [place] x2 Diabetes Maternal Grandmother Hyperte nsion Diabetes [...] 80 02/05/2019 3:37 PM EDT Temperature 36.9 C (98.4 F) 03/03/2019 3:50 PM EST Respiratory Rate 14 02/05/2019 3:37 PM EDT [...] 2024 BMI CHECK/ADVISE 04/15/2024 02/05/2019, 01/13/2019 INFLUENZA (#1) 2024 12/14/2018, 0904/2018 (External Completion of Vaccination per patient) Care Teams Laminator Relationship Specialty Start Date End Date Dwaine Buitrago MD PCP - General Internal Medicine 12/05/18
--- OUTSIDE RECORDS SUMMARY | 2024-11-19 12:39 | XMS_ITS | Clinical Summary ---
Author Organization [facility] Address [address] [place] [id number] Care Team Providers Care School Vocational Educator Name Role Phone Gilberto Regan MD Primary Care Provider [phone]- [phone] Thomas Aly PA-C Unavailable + [phone] Allergies Active Allergy Reactions Criticality Noted Date Comments Cinnamon Unknown/Patient and Family Unable to Define Medium 02/05/2019 Milner Unknown/Patient and Family Unable to Define Medium 02/05/2019 Nickel Unknown/Patient and Family Unable to Define Medium 02/05/2019 Medications traMADol (ULTRAM) 50 MG tablet Take 1 tablet (50 mg total) by mouth 4 times daily (every 6 hours) as needed. for pain 4 Active dupilumab (Dupixent) 300 MG/2ML pen injector Inject under the skin once. Active sodium chloride 1 g tabletIndications :Heart palpitations Take 1 tablet (1 g total) by mouth 2 times a day. 180 tablet 1 5 Active sodium chloride 1 g tabletIndications :Heart palpitations Take 1 tablet (1 g total) by mouth 2 times a day. 180 tablet 1 5 10/27/19 25 Discontinu ed(Reorder ) Encounters Date Type Department Care Team Description 10/26/2024 Refill [facility] Heart & Vascular [place] [facility] - Cardiology [address] [place] [address] Thomas Aly PA-C Medication Refill from Last 3 Months Social History Tobacco [...] Mass Index - - Plan of Treatment Upcoming Encounters Date Type Department Care Team (Late st Contact Info) Description 12/25/2024 11:00 AM EDT Appointment [facility] Heart & Vascular [place] [facility] - Cardiology [address] [place] [address] Thomas Aly PA-C [address] [place] [phone] Health Maintenance Due Date Last Done Comments [...] patient's age to complete this topic Insurance [facility] OUT OF STATE - PPO Care Teams School Vocational Educator Relationship Specialty Start Date End Date Gilberto Rgean MD [address] [place] [address] [address] [place] [address] PCP - General 05/20/23 Thomas Aly PA-C [address] [place] [phone] Physician Banana Room Cutter Cardiac Electrophysiology 09/27/23
--- OUTSIDE RECORDS SUMMARY | 2024-11-19 12:39 | XMS_ITS | Clinical Summary ---
Author Organization [facility] [address] [facility] [address] Address [address] [place] [address] Phone Care Team Providers Care Unit Controller Name Role Phone Yesenia Cerda MD Primary Care Prov ider Allergies Active Allergy Reactions Criticality Noted Date Comments Cinnamon 02/05/2019 Doran Derived 02/05/2019 Nickel 02/05/2019 Medications albuterol HFA (ProAir HFA) 90 mcg/actuation inhaler 10/15/2018 Active traMADoL (ULTRAM) 50 mg tablet Take 1 Tab by mouth 2 times daily as needed for Pain. 02/05/2019 Active dupilumab (Dupixent Pen) 300 mg/2 mL pen Inject under the skin. Active sodium chloride 1,000 mg soluble tablet Take 1 tablet (1 g total) by mouth 2 (two) times a day. Active Active Problems Problem Noted Date Diagnosed [...] 3:00 PM EDT Office Visit Adult Medicine [address] [address] Yesenia Powell MD Routine general medical examination at a health care facility (Primary Dx); POTS (postural orthostatic tachycardia syndrome); Eczema, unspecified type; Sjogren syndrome with glomerular disease ([facility] V24); Pelvic pain; Type 2 diabetes mellitus without complication, without long-term current use of insulin ([facility] V24, [facility] V28); At risk for infection from Last [...] Hyperlipidemia Coronary artery disease Maternal Grandfather s/p [place] x2 Diabetes Maternal Grandmother Hyperte nsion Diabetes [...] PM EST Office Visit Adult Medicine - [address] [phone] Yesenia Cerda MD [address] [place] [address] Health Maintenance Due Date Last Done Comments Diabetes: Annual Foot Exam 02/19/1994 Diabetes: Annual Retina Eye Exam 02/19/1994 Pneumococcal Vaccine: Pediatrics (0 to 5 Years) and At-Risk Patients (6 to 49 Years) (1 of 2 - PCV) 02/19/2003 Diabetes: Annual GFR (Glomerular Filtration Rate) 02/06/2020 02/05/2019 Cholesterol Screening (Lipid Panel) 06/19/2024 02/05/2019 Diabetes: Annual Urine Albumin-Creatinine Ratio (uACR) 09/29/2024 Diabetes: Blood Sugar Control Test (HGBA1C) 09/29/2024 Influenza Vaccine (#1) 2024 3, 01/01/2020, 01/06/2019, Additional history exists COVID-19 Vaccine [...] clinically appropriate to address at this time) Breast Cancer Screening 02/27/2026 02/28/2024 Cervical Cancer Screening: Pap Smear 09/14/2027 09/13/2024 Depression Screening Completed 09/28/2024 HIB Vaccines Aged Out No longer eligi [...] Results * Annual BMP Blood Test (02/05/2019) Pathologist [facility] Annual BMP Blood Test Abstracted us Historical Provider HEALTH MAINTENANCE Final Result * [...] Most Recently Relevant to Health Maintenance Insurance [facility] Care Teams Unit Controller Relationship Specialty Start Date End Date Yesenia Cerda MD [address] [place] [id number] PCP - General Internal Medicine 06/18/24
== END 2024-11-19 14:27 | disposition home or self-care (01) ==
LOC: HO.HWS 12:35
PROVIDERS: PCP Internal Medicine; Visit Provider Advanced Practice Midwife
DX: D21.9 Benign neoplasm of connective and other soft tissue, unspecified (principal); R93.5 Abnormal findings on diagnostic imaging of other abdominal regions, including retroperitoneum
CPT/HCPCS: 99213

== ENCOUNTER 2025-01-04 16:18 | Outpatient (REF) | payer BC, SELFPAY ==
--- NOTE | ~2025-01-04 | US_ITS ---
EXAMINATION: US PELVIS CLINICAL INFORMATION: Abnormal findings diagnostic imaging. COMPARISON: Ultrasound pelvis 07/27/2024 TECHNIQUE: Ultrasound of the pelvis is performed using both transabdominal and transvaginal transducers along with Doppler. Transvaginal imaging is performed due to inadequate visualization transabdominally. FINDINGS: Uterus: The uterus is anteverted and measures 8.7 x 4.6 x 5.4 cm. The double wall endometrial thickness is 9 mm. The uterus is smooth in contour and has normal myometrial echogenicity. There are at least 2 hypoechoic lesions/fibroids. 1. Anterior left upper body fibroid measures 1.2 x 0.9 x 1.2 cm. Previously it measured 1.1 x 0.9 x 1.2 cm. 2. Anterior fibroid deep in mid body of uterus measures 1.7 x 0.6 x 0.6 cm. Previously it measured 0.7 x 0.4 x 0.8 cm. 3. Subserosal lesion in the left mid to lower body the uterus measures 1.6 1.4 x 1.3 cm. Previously it measured 1.5 x 1.2 x 1.3 cm. Both ovaries are visualized. There is normal color flow to the adnexa. There is no ovarian torsion. There is no pelvic ascites or fluid collection. Right ovary measures 3.0 1.7 x 1.7 cm. Volume 4.5 mL. Previously visualized right ovarian hypoechoic nodule is not visualized at this time. Left ovary measures 2.4 x 2.1 x 1.9 cm. Volume 5.0 mL. No free fluid in cul-de-sac US/US pelvic and transvaginal IMPRESSION: Stable fibroids. The ovaries or unremarkable. No right ovary nodule/complex cyst seen at this time There is no free fluid in the cul-de-sac. Electronically signed by: Stephane Hassan MD 01/05/2025 07:17 AM EDT
== END 2025-01-04 16:19 | disposition home or self-care (01) ==
LOC: HO.US 16:18
PROVIDERS: PCP Internal Medicine; Visit Provider Advanced Practice Midwife
DX: R93.5 Abnormal findings on diagnostic imaging of other abdominal regions, including retroperitoneum (principal); D21.9 Benign neoplasm of connective and other soft tissue, unspecified
CPT/HCPCS: 76830; 76856

== ENCOUNTER → 2025-01-04 16:20 | Outpatient (BNV) | payer BC, SELFPAY | PROVIDERS: PCP Internal Medicine; Visit Provider Radiology Diagnostic Radiology | DX: D25.9 Leiomyoma of uterus, unspecified (principal) | CPT/HCPCS: 76830; 76856 ==

== ENCOUNTER 2025-01-20 12:21 | Outpatient (AMB) | payer BC, SELFPAY ==
--- NOTE | 2025-01-20 12:21 | A.OFFVIS_ITS ---
Intake Visit Reasons: us follow up Project Engineer: Project Engineer Present Allergies cinnamon (CINNAMON) Allergy (Intermediate, Verified 09/08/24 15:50) HIVES [place] And Derivatives (CITRUS) Allergy (Intermediate, Verified 09/08/24 15:50) HIVES pineapple (PINEAPPLE) Allergy (Unknown, Verified 09/08/24 15:50) SWELLING OxyContin Allergy (Unknown, Uncoded 09/17/23 09:38) Unknown Seasonal IC Allergy (Unknown, Uncoded 09/17/23 09:38) Itchy Eyes Is last menstrual period known: Yes HPI Comments Details: Tele Health Visit Total time I personally spent on visit and management today: 16 minutes. Time spent included review of pertinent office notes in the electronic health record; review of laboratory and imaging results; review of personal family medical history; discussing diagnosis and plan of care with the patient; documenting the encounter in the EMR. Patient presents to discuss: Follow up pelvic ultrasound, history of fibroids. 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 Female Reproductive History Menstrual Age of Menarche: 10 Review of Systems Const All systems reviewed & are unremarkable except as noted in HPI and below Endo Reports no additional complaints Physical Exam Const General: cooperative, healthy appearing and no acute distress Psych Appearance: well kempt Attitude: cooperative Thought process: Normal thought process present Telehealth Telehealth Telehealth Platform: [employer] Location of provider rendering services: practice address Location of patient: address on file Patient Identification confirmed using: Name, : Yes Telehealth method: video Patient verbally consented to treatment: Yes Patient verbally consented to billing insurance company: Yes Patient informed of any privacy concerns related to visit: Yes Results Reviewed Results Reviewed: [address] [address] Ultrasound Report Signed Patient: Antoinette Chavarria MR#: [id number] : 1985 Acct:[id number] Age/Sex: 39 / F ADM Date: 01/04/25 Loc: HO.US Attending Dr: Marisa Finney CNM Ordering Physician: Marisa Finney CNM Date of Service: 01/04/25 Procedure(s): US pelvic and transvaginal Accession Number(s): [id number] cc: Jyotsna Regan MD; Marisa Finney CNM~ Reason for Exam: R93.5 - Abnormal findings on diagnostic imaging of other abdominal regio... EXAMINATION: US PELVIS CLINICAL INFORMATION: Abnormal findings diagnostic imaging. COMPARISON: Ultrasound pelvis 07/27/2024 TECHNIQUE: Ultrasound of the pelvis is performed using both transabdominal and transvaginal transducers along with Doppler. Transvaginal imaging is performed due to inadequate visualization transabdominally. FINDINGS: Uterus: The uterus is anteverted and measures 8.7 x 4.6 x 5.4 cm. The double wall endometrial thickness is 9 mm. The uterus is smooth in contour and has normal myometrial echogenicity. There are at least 2 hypoechoic lesions/fibroids. 1. Anterior left upper body fibroid measures 1.2 x 0.9 x 1.2 cm. Previously it measured 1.1 x 0.9 x 1.2 cm. 2. Anterior fibroid deep in mid body of uterus measures 1.7 x 0.6 x 0.6 cm. Previously it measured 0.7 x 0.4 x 0.8 cm. 3. Subserosal lesion in the left mid to lower body the uterus measures 1.6 1.4 x 1.3 cm. Previously it measured 1.5 x 1.2 x 1.3 cm. Both ovaries are visualized. There is normal color flow to the adnexa. There is no ovarian torsion. There is no pelvic ascites or fluid collection. Right ovary measures 3.0 1.7 x 1.7 cm. Volume 4.5 mL. Previously visualized right ovarian hypoechoic nodule is not visualized at this time. Left ovary measures 2.4 x 2.1 x 1.9 cm. Volume 5.0 mL. No free fluid in cul-de-sac US/US pelvic and transvaginal IMPRESSION: Stable fibroids. The ovaries or unremarkable. No right ovary nodule/complex cyst seen at this time There is no free fluid in the cul-de-sac. Electronically signed by: Stephane Hassan MD 01/05/2025 07:17 AM EDT RP Dictated By: Stephane Hassan MD Signed By: <Electronically signed by Stephane Hassan MD in OV> 01/05/25 0717 DD/ 1645 TD/TT: 01/04/25 1712 Contact Acid Plant Operator Helper: ADDISON Assessment & Plan Assessment & Plan (1) Leiomyoma: Code(s): D21.9 - Benign neoplasm of connective and other soft tissue, unspecified Plan Discussed: Ultrasound findings- IMPRESSION: Stable fibroids. The ovaries or unremarkable. No right ovary nodule/complex cyst seen at this time There is no free fluid in the cul-de-sac. Call if there is any menstrual changes with bleeding less than 24 days apart or prolonged heavy bleeding episodes, pelvic pain, persistent pelvic pressure, or unexplained persistent bloating. The patient expressed understanding and agreement with the plan of care. All of her questions and concerns were addressed to the best of my ability. Schedule annual examination. The patient expressed understanding and agreement with the plan of care. All of her questions and concerns were addressed to the best of my ability. Coding Level of Care Code Tele Est Pt Level 3 (33217) Diagnoses Leiomyoma D21.9
== END 2025-01-20 13:06 | disposition home or self-care (01) ==
LOC: HO.HWS 12:21
PROVIDERS: PCP Internal Medicine; Visit Provider Advanced Practice Midwife
DX: D21.9 Benign neoplasm of connective and other soft tissue, unspecified (principal)
CPT/HCPCS: 99213